=== PATIENT | female | born 1970 | race Caucasian/White ===

== ENCOUNTER 2020-09-08 20:10 | Emergency (ER) | payer OTHER, SELFPAY ==
--- NOTE | 2020-09-08 20:13 | ED.GENADUL_ITS ---
Discharge Plan Disposition Patient Disposition: HOME Condition: Stable Discharge Details Clinical Impression: Hypokalemia, Hernia, Constipation, Enlarged ovary, Acid reflux Primary Care Provider: None,None ED Provider: Leatha Godwin Home Meds and New Rx's Prescriptions: New pantoprazole [Protonix] 40 mg tablet,delayed release (DR/EC) 40 mg PO DAILY Qty: 20 RF: 0 Continued mupirocin 2 % ointment 1 applic TOPICAL BID RF: 0 doxycycline hyclate 100 mg tablet 1 mg PO BID RF: 0 Discharge Instructions Instructions: Magnesium Citrate (By mouth), Constipation (ED), Hypokalemia (ED), Gastroesophageal Reflux Disease (ED) Additional Instructions: In regard to your hernia, please keep your upcoming appointment with general surgery. This does not appear incarcerated today. However, if you develop fever/chills, increased pain, redness, firmness or other new/worsening symptom please seek care urgently once again. You were notably constipated on your CT scan today. Please encourage water intake. You are being sent home with magnesium citrate. Please take half a bottle for bowel movement. If this is unsuccessful, you may use the second half of the bottle. Your potassium was low today, you were given a supplementation for this. However, I would like you to decrease the amount of potassium containing foods you are in taking. Please take the Protonix as prescribed for your acid reflux. Please try to cut down on acid-containing foods. You had a large ovary noted on your imaging. I do not believe that this is contributing to your discomfort today. However, I would like for you to discuss this further with your primary care. If you develop any new or worsening symptoms please seek care urgently once again. Otherwise, please keep your appointment with general surgery as well as her primary care. Attached is educational reading regarding the findings noted today as well as information on the magnesium citrate you are going home with. Stand Alone Forms: Work Release Discharge Data Discharge Date/Time-TO BE ENTERED AT DEPARTURE: 09/08/20 22:50 Medical Decision Making Patient is a pleasant 50 year old female presneting today with c/c of hernia and heartburn. She states that the heartburn has been ongoing for years but worse over the past 2 months. Has not noted any foods that make symptoms worse. She states that she experiences a burning sensation that radiates jose r her chest, particularly when she burps. She denies exertioal CP or SOB. No fevers/chills. Has not been taking antying for her symptoms as she does not like to use medications and does not like the taste. She also recently notcied a lump to the right groin area. Has appointment on Tuesday with general surgery for evaluation of hernia. States that she has had some discomfort over this area. Reports constipation, last BM was this afternoon but less than her typical. Was advised to seek emergency evaluation with cahgne in bowel habits as she has a hernia. On exam, she appears nontoxic. Lungs clear, normal cardiac exam. Abdominal exam signficant for mild epigastric tenderness. She has a soft right inguinal hernia. I do not appreciate evidence of incarceration. She appears well hydrated. VS WNL. As she has had pain and hernia, plan for CT. ECG reviewed by physician, no acute ischemic changes noted. Labs reviewed, no leukocytosis. Potassium is low at 3.2, plan for oral replenishment. CT reviewed by radiologist. Significant for fat containing right inguinal hernia, no strangulation. Constipation. Enlarged right ovary. He pain is so focal with palpation of the hernia and quite mild, I do not suspect ovarian source of pain at htis time. Will have PCP discuss this further. She is feeling much improved after IV protonix. Will continue her on this. She has upcoming appointments iwth both PCP as well as general surgery. She is quite concerned with constipation. Encouraged water intake. ADvised OTC medication for improved bowel regimen. As stores are closed, will send her home iwth magnesium citrate. Advised half bottle this evening. She can take more if no result. Return precautions given. All of her questions and concerns were addressed, she is in agrement with this plan. HPI General Mode of arrival: ambulatory . Date/Time Provider Initiated Documentation: 09/08/20 20:13 . Limitations to Documentation: no limitations . Information obtained by: patient and RN notes reviewed . History of Present Illness 50 year old F presents to the emergency department with the chief complaint of heart burn and right lower hernia, described as moderate, Quality is described as aching, and is localized to the abdomen (reports fairly diffuse pain). Patient reports no radiation. Patient started experiencing this month(s) (intermittent for the past 2 months) and it has been intermittent. No relieving factors improve symptom(s), No exacerbating factors reported . Patient notes chest pain (endorses pain when she burps), loss of appetite (today) and nausea/vomiting (nausea, no vomiting); denies cough, diaphoresis, fever/chills and shortness of breath. Patient did receive the following treatments prior to arrival, none Related Data Home Medications Medication Instructions Recorded Confirmed doxycycline hyclate 1 mg PO BID 09/08/20 09/08/20 mupirocin 1 applic TOPICAL BID 09/08/20 09/08/20 pantoprazole [Protonix] 40 mg PO DAILY #20 tab 09/08/20 Previous Rx's Medication Instructions Recorded pantoprazole [Protonix] 40 mg PO DAILY #20 tab 09/08/20 Allergies Allergy/AdvReac Type Severity Reaction Status Date / Time No Known Allergies Allergy Unverified 09/08/20 20:19 Review of Systems Constitutional Constitutional: Reports as per HPI, Denies chills, Denies fatigue, Denies fever(s) and Denies headache(s) ENT Ears, Nose, Mouth, and Throat: Denies headache(s) Cardiovascular Cardiovascular: Reports as per HPI, Denies chest pain and Denies dyspnea Respiratory Respiratory: Reports as per HPI, Denies cough and Denies dyspnea Gastrointestinal Gastrointestinal: Reports as per HPI Musculoskeletal Musculoskeletal: Reports as per HPI and Denies back pain Integumentary/Breasts Skin/Breast: Reports as per HPI and Denies rash Neurologic Neurologic: Reports as per HPI and Denies headache(s) Endocrine Endocrine: Denies fatigue [facility] Surgical History (Updated 09/08/20 @ 20:46 by Alessandra Belle) Tubal ligation status Social History Smoking/Tobacco Use Status: Current every day Alcohol Intake: never Substance use type: does not use Do you feel safe at home: Yes Do you feel safe in your relationship?: Yes Exam Const General: cooperative, healthy appearing, comfortable, no acute distress and well developed Nutritional Appearance: average body habitus and well nourished Orientation: alert and awake [facility] Head: normal to inspection Mouth: moist mucous membranes Resp Effort & Inspection: normal respiratory effort, able to speak in complete sentences and no respiratory distress Auscultation: clear to auscultation bilaterally, no rales, no rhonchi and no wheezes Cardio Rate: regular rate Rhythm: regular rhythm Heart Sounds: S1 normal and S2 normal GI Inspection: no abdominal wall ecchymosis, no edema, non-distended and visible herniation (right inguinal) Palpation: soft, no hepatosplenomegaly, not firm, no guarding, hernia (right inguial, soft without evicence of incarceration), not rigid and tender (over hernia and epigastric area, no peritoneal findings) Percussion: normal to percussion Auscultation: normal bowel sounds Back/Spine/Pelvis Back: no CVA tenderness Skin General skin exam: no rashes or lesions noted Trauma: no lacerations or abrasions Neuro General: patient alert and patient awake Cognition: normal cognition Speech: speech normal Gait: normal gait Psych Appearance: grossly normal and well kempt Mental Status: mental status grossly normal Speech and Movement: speech and movement normal
--- NOTE | 2020-09-08 20:15 | DI.CT_ITS ---
EXAM: CT ABDOMEN PELVIS W CLINICAL HISTORY: epigastric and RLQ pain TECHNIQUE: Imaging Protocol: Axial computed tomography images with coronal and sagittal reformatted images were created and reviewed CONTRAST MATERIAL: Intravenous: Omnipaque 350 Contrast volume:100 mL Oral: No COMPARISON: No exams were available for comparison FINDINGS: ABDOMEN: Lung Bases: Normal where visualized. Liver: Normal density. No measurable mass. Portal, Superior Mesenteric, and Splenic Veins: Unremarkable. Gallbladder and Biliary Tract: No radiodense calculus or dilation. Pancreas: Normal density, no abnormal calcifications or inflammatory process. Spleen: Normal. Adrenals: No masses seen. Kidneys: Normal size, contour and axis. No radiodense stones or obstructive uropathy. No masses seen. Abdominal Aorta: Abdominal portion non-dilated. Bowel: No obstruction or bowel wall thickening. Appendix is unremarkable. There is a large amount of stool throughout the colon. Peritoneal Cavity: No ascites, collection or mesenteric inflammatory response. Lymph Nodes: Within normal limits. Bones: Mild degenerative changes. Soft Tissues: Small fat containing umbilical hernia. Small fat containing right inguinal hernia. PELVIS: Bladder: Symmetric distention, no gross wall thickening. Reproductive Organs: The right ovary measures 3.5 x 4.0 cm reproductive organs are otherwise unremark able. Lymph Nodes: Within normal limits. Bones: Within normal limits. IMPRESSION: 1. Normal appendix. 2. No evidence of nephrolithiasis or hydronephrosis. 3. Unremarkable gallbladder no biliary ductal dilatation. 4. Fat containing right inguinal hernia. 5. Mildly prominent right ovary. If there is concern for ovarian pathology, pelvic ultrasound may be considered for further evaluation. 6. Large amount of stool throughout the colon. No evidence of obstruction. RADIATION DOSE DELIVERED: 857.44mGy.cm Total DLP DATA REPOSITORY: All CT scans at this facility are submitted to the National Radiology Data Registry (NRDR) Dose Index Registry (DIR) with the [employer] (ACR). RADIATION OPTIMIZATION: All CT scans at this facility use at least one of these dose optimization te chniques: automated exposure control; mA and/or kV adjustment per patient size (includes targeted exa ms where dose is matched to clinical indication); or iterative reconstruction.
--- NOTE | 2020-09-08 20:15 | RT.EKG_ITS ---
APPROVED REPORT Exam: Resting ECG Patient Location: E HR:65 bpm ECG Measurements Heart Rate 65 AXIS IL 161 P 60 QRSd 94 QRS 72 QT 386 T 19 QTc 402 Conclusion Sinus rhythm...normal P axis, V-rate 60- 99
[2020-09-08 20:16] VITALS: BP 131/78; PULSE 90; RESP 16; TEMP 35.9; O2SAT 99
[2020-09-08] MEDS: Ondansetron 4 MG/2 ML VIAL IVP (20:40)
[2020-09-08] MEDS: Pantoprazole 40 MG VIAL IVP (20:41)
[2020-09-08] MEDS: Lactated Ringers 1,000 ML 1000 ML IV (20:55)
[2020-09-08 20:59] LABS: Abs Immature Grans 0.01 10^3/uL (0.0-0.06); Absolute Basophil Count 0.05 10^3/uL (0.0-0.2); Absolute Eosinophil Count 0.17 10^3/uL (0.0-0.7); Absolute Lymphocyte Count 2.46 10^3/uL (1.2-3.4); Absolute Neutrophil Count 3.61 10^3/uL (1.2-6.7); Basophils % 0.7; Eosinophils % 2.4; HCT 39.2 % (36.0-46.0); HGB 13.5 g/dL (11.2-15.7); Immature Grans % 0.1; Lymphocytes % 35.1; MCH 30.7 pg (27.0-33.0); MCHC 34.4 % (32.0-36.0); MCV 89.1 fL (80-95); MPV 10.4 fL (8.0-11.0); Neutrophils % 51.7; Nucleated RBC 0 %; Platelet Count 238 10^3/uL (130-400); RDW 12.3 % (11.7-14.6); RDW-SD 40.5 fL
[2020-09-08 21:00] LABS: Bilirubin Negative (Negative); Blood Negative (Negative); Clarity Clear (Clear); Glucose Negative (Negative); Ketones Negative (Negative); Leukocyte Esterase Negative (Negative); Nitrite Negative (Negative); Urobilinogen 0.2 EU/dL (Up TO 0.2)
[2020-09-08 21:15] LABS: ALT 19 U/L (14-59); AST 17 U/L (15-37); Albumin 3.8 g/dL (3.4-5.0); Alkaline Phosphatase 60 U/L (46-116); Anion Gap 6.9 mmol/L (3-11); BUN 20 mg/dL (7-18); Bilirubin, Total 0.4 mg/dL (0.2-1.0); CO2 30.1 mmol/L (21.0-32.0); CREATININE 0.82 mg/dL (0.55-1.02); Calcium 9.5 mg/dL (8.5-10.1); Chloride 104 mmol/L (98-107); Glucose 89 mg/dL (74-106); Lipase 99 U/L (73-393); Magnesium 2.1 mg/dL (1.8-2.4); Potassium 3.2 mmol/L (3.5-5.1); Sodium 141 mmol/L (136-145); Total Protein 6.7 g/dL (6.4-8.2)
[2020-09-08 21:16] LABS: Troponin I < 0.05 ng/mL (<0.06)
[2020-09-08] MEDS: Normal Saline - Diluent 50 ML VIAL IV (21:33)
[2020-09-08] MEDS: Omnipaque 350 MG/ML 100 ML BTL IJ (21:33)
[2020-09-08 21:39] VITALS: BP 113/67; PULSE 66; RESP 16; O2SAT 100
[2020-09-08] MEDS: Potassium Chloride 20 MEQ TABCR PO (22:43)
[2020-09-08] MEDS: Magnesium Citrate 300 ML BTL PO (22:44)
[2020-09-08 22:45] VITALS: BP 130/65; PULSE 63; RESP 16; TEMP 36.5; O2SAT 100
--- NOTE | 2020-09-11 16:03 | DI.VRAD_ITS ---
PROCEDURE INFORMATION: Exam: CT Abdomen And Pelvis With Contrast Exam date and time: 09/08/2020 8:25 PM Age: 50 years old Clinical indication: Localized; Prior surgery; Surgery date: 6+ months; Surgery type: Tubal ligation; Patient HX: Lower abdominal pain, PT states she has a hernia and has been painful in lower abdomen , nausea, and heartburn TECHNIQUE: Imaging protocol: Computed tomography of the abdomen and pelvis with intravenous contrast. Radiation optimization: All CT scans at this facility use at least one of these dose optimization techniques: automated exposure control; mA and/or kV adjustment per patient size (includes targeted exams where dose is matched to clinical indication); or iterative reconstruction. Contrast material: OMNIPAQUE 350; Contrast volume: 100 ml; Contrast route: INTRAVENOUS (IV); COMPARISON: No relevant prior studies available. FINDINGS: Lungs: Lung bases are clear and heart size is normal. No pleural or pericardial effusions are detected. Liver: No focal hepatic lesions detected. Gallbladder and bile ducts: Gallbladder is nondistended but otherwise unremarkable. Pancreas: No pancreatic mass or ductal dilation. Spleen: No splenomegaly or splenic mass. Adrenals: No adrenal mass. Kidneys and ureters: Bilateral excretion of contrast material with no hydronephrosis seen. Stomach and bowel: Moderate fecal loading seen throughout segments of colon with no evidence of obstruction or perforation. Appendix: Normal appendix is identified without evidence of inflammation. Intraperitoneal space: No pneumoperitoneum or free intraperitoneal fluid detected. Vasculature: No abdominal aortic aneurysm Lymph nodes: No lymphadenopathy detected. Urinary bladder: Unremarkable as visualized. Reproductive: Unremarkable as visualized. Bones/joints: No acute fracture. Soft tissues: Small right inguinal hernia identified containing a small amount of peritoneal fat with no bowel loop herniation or evidence of incarceration. IMPRESSION: 1. Small right inguinal hernia containing primarily small amount of peritoneal fat with no bowel loop herniation or evidence of incarceration. 2. Moderate fecal loading of the colon with no evidence of obstruction or perforation. Dictated and Authenticated by: Manohar Helm MD. Ordering:BUTCH Zhang MD
== END 2020-09-08 22:50 | disposition home or self-care (01) ==
PROVIDERS: Emergency Provider Physician Assistant
DX: E87.6 Hypokalemia (principal); K21.9 Gastro-esophageal reflux disease without esophagitis; K40.90 Unilateral inguinal hernia, without obstruction or gangrene, not specified as recurrent; K59.00 Constipation, unspecified; R93.5 Abnormal findings on diagnostic imaging of other abdominal regions, including retroperitoneum
CPT/HCPCS: 36415; 80053; 83690; 93005; 96361; 96374; 96375; 99285; 74177; 81003; 83735; 84484; 85025; 93010; 99284; J2405; J3490

== ENCOUNTER 2020-09-18 02:14 | Outpatient (CLI) | payer OTHER, SELFPAY ==
--- NOTE | 2020-09-18 08:00 | DI.US_ITS ---
EXAM: US PELVIS TRANSVAGINAL CLINICAL HISTORY: enlarged right ovary on CT,HERNIA,N83.9 TECHNIQUE: Transabdominal and transvaginal imaging was performed using standard protocol. COMPARISON: CT CT ABDOMEN PELVIS W from 09/08/2020 CR XR CHEST 2V PA LATERAL from 09/18/2020 FINDINGS: KIDNEYS: Kidneys are symmetric in size. No evidence of renal calculi. No evidence of hydronephrosis. No renal mass or cyst identified. UTERUS: Anteverted. 5.7 x 2.6 x 4.1 cm. Endometrium: 1 millimeter Myometrium: Unremarkable. Cervix: Unremarkable. OVARIES: Right: Cyst or mass: Right ovary is enlarged compared to the left, measuring 4.7 x 3.1 x 2.9 cm. The borders are not well-defined. This could be secondary to surrounding bowel. No discrete mass or cy st is visible. Left: Cyst or mass: None. 2.1 x 1.4 x 1.2 cm DOPPLER: Color: Symmetric and uniform flow to both ovaries. No hyperemia. Duplex: Normal ovarian arterial waveforms visualized. CUL-DE-SAC: Free fluid: None. IMPRESSION: 1. Normal-appearing uterus with endometrial stripe within normal limits. 2. Right ovarian enlargement. No discrete mass is seen however the borders appear indistinct. Follo w-up ultrasound or MRI could be considered. DATA REPOSITORY:
--- NOTE | 2020-09-18 14:40 | DI.RAD_ITS ---
EXAM: XR CHEST 2V PA LATERAL CLINICAL HISTORY: COUGH, SMOKER TECHNIQUE: 2D digital imaging was performed. COMPARISON: No exams were available for comparison FINDINGS: MEDIASTINUM: Normal. HEART: Normal. PULMONARY VASCULATURE: Normal. LUNGS: Clear. Mild hyperinflation. No infiltrate or mass is visible. PLEURAL SPACE: No pleural effusion or pneumothorax. BONE:Degenerative disc changes and thoracic kyphosis. No compression fractures. IMPRESSION: No acute pulmonary findings. DATA REPOSITORY: RADIATION DOSE DELIVERED:
== END 2020-09-18 02:34 ==
PROVIDERS: Visit Provider Surgery
DX: R05 Cough (principal); F17.210 Nicotine dependence, cigarettes, uncomplicated; N83.8 Other noninflammatory disorders of ovary, fallopian tube and broad ligament; K46.9 Unspecified abdominal hernia without obstruction or gangrene
CPT/HCPCS: 71046; 76830; 76856

== ENCOUNTER 2020-09-19 16:19 | Outpatient (REF) | payer OTHER, SELFPAY ==
--- NOTE | 2020-09-19 15:15 | PAPFT_PTH ---
PATIENT: Maribeth John I LOC: [facility] U#:[id number] AGE/SX: 50/F ROOM: RE09/19/[address]: DESI Buenrostro : 1970 BED: DIS: 09/19/2020 SPEC #: [id number] RECD: 09/19/20 17:55 STATUS: SUMAN REQ #: [id number] EDDIE: 09/19/20 15:[address]: Tamika Pantoja DEPT: [facility] Cytology RECD BY: Marva Newsome ENTERED: 09/19/20 17:55 SP TYPE: PAPFT OT DR: None Tissues: 1 - CX/ENDOCX FOR PAP SMEARS Procedures: PAP THIN PREP/UVM Screening HPV DNA PROBE Comments: [id number]
== END 2020-09-19 16:39 ==
LOC: LBN 16:19
PROVIDERS: Visit Provider Nurse Practitioner Family
DX: Z12.4 Encounter for screening for malignant neoplasm of cervix (principal); Z11.51 Encounter for screening for human papillomavirus (HPV)
CPT/HCPCS: 88142; 87624

== ENCOUNTER 2020-10-09 08:54 | Outpatient (CLI) | payer OTHER, SELFPAY ==
[2020-10-11 10:16] LABS: SARS-CoV-2 RNA Not Detected (NotDetected); SARS-CoV-2 RNA Source Nasal/Nares
== END 2020-10-09 09:14 ==
PROVIDERS: Visit Provider Surgery
DX: Z11.59 Encounter for screening for other viral diseases (principal); Z01.818 Encounter for other preprocedural examination
CPT/HCPCS: U0003

== ENCOUNTER 2020-10-13 11:28 | Day surgery (SDC) | payer OTHER, SELFPAY ==
[2020-10-13 12:10] VITALS: BP 113/77; PULSE 77; RESP 16; TEMP 36.4; O2SAT 100
[2020-10-13] MEDS: Lactated Ringers 1,000 ML 80 ML IV (12:30)
--- NOTE | 2020-10-13 15:00 | STOM_PTH ---
PATIENT: Maribeth John I LOC: [facility] U#:[id number] AGE/SX: 50/F ROOM: RE10/13/[address]: Annabelle Zaidi : 1970 BED: DIS: 10/13/2020 SPEC #: [id number] RECD: 10/13/20 17:56 STATUS: SUMAN REQ #: [id number] EDDIE: 10/13/20 15:[address]: Annabelle Zaidi DEPT: Surgical Specimen RECD BY: Marva Newsome ENTERED: 10/13/20 17:58 SP TYPE: STOMACH OTHR DR: None Tissues: 1 - BIOPSY BOWEL 2 - STOMACH BIOPSY 3 - STOMACH BIOPSY 4 - ESOPHAGUS BIOPSY 5 - ESOPHAGUS BIOPSY 6 - BIOPSY BOWEL Procedures: GROSS AND MICRO LEVEL 4 Comments: [id number] ([id number] [facility]#)
--- NOTE | 2020-10-13 15:32 | ENDO_ITS ---
Date of service: 10/13/20 Time of Service: 15:33 Endoscopy Report DATE OF PROCEDURE: 10/13/20 PRE-OP DIAGNOSIS: non cardiac chest pain POST-OP DIAGNOSIS: other (esophagitis/gastritis/hiatal hernia ) PROCEDURE: egd bx ANESTHESIA: GETA ESTIMATED BLOOD LOSS: 1 PATHOLOGY: other COMPLICATIONS: None DISPOSITION: same day PROCEDURE DESCRIPTION: After informed consent was obtained the patient was take to the procedure room and placed in a supine position. Monitors were applied and a time out was done. The patients name, date of , procedure type, allergies to medications and metal in their body was reviewed. A bite block was placed and the patient was sedated. Once sedated and comfortable the gastroscope was advanced through the oropharynx which was grossly normal into the esophagus. The proximal and mid-esophagus were nl. In the distal esophagus there was mild esophagitis noted. The scope was advanced into the stomach and through the pylorus into the 3rd portion of the duodenum. The duodenum was noted to be nl. Biopsies were done . The scope was retracted back into the stomach and biopsies were done to rule out H. pylori. There were no ulcers. Mild gastritis at the antrum. The scope was retroflexed. The cardia and fu ndus were noted to be normal. There small hiatal hernia noted. The scope was retracted back into the esophagus and biopsies were done of the GE junction to rule out Ramos's. The Z line was regular. The GE junction was at 37 cm. The scope was removed and the patient was woken up and taken back to [facility] in stable condition. Will have my office call to schedule her hernia surgery.
--- NOTE | 2020-10-13 15:37 | W.COLOREPORT ---
Date of service: 10/13/20 Time of Service: 15:37 Colonoscopy Report Date of procedure: 10/13/20 Pre-op diagnosis general: CRC screen Post-op diagnosis procedure note: other (s polyp vs lymphoid tissue ) Procedure: CE w/ bx Surgeon: Annabelle Zaidi Anesthesia proc note operative: GETA Estimated blood loss (mL): 0 Pathology: other Complications: None Disposition: no change Prep: Miralax/Dulcolax Retraction Time: 10 mins Procedure Description: After informed consent was obtained the patient was taken to the procedure room and placed in a left decubitous position. Monitors were applied and a time out was done. The patients name, date of , procedure, allergies to medications and metal in their body was reviewed. The patient was then sedated. Once sedated and comfortable a rectal exam was done. External exam was normal. Internal exam revealed a normal sphincter tone and no palpable masses. The scope was then introduced and retrofelexed. No internal hemorrhoids were identified. The scope was then advanced to the cecum w/ difficulty. The TI and appendiceal orifice were identified. The prep was adequate. The scope was then slowly retracted over 10 minutes back into the rectum. Polyps were removed at 30cm- polyp vs lymphoid tissue. The scope was removed and the patient was woken up and taken back to Same day surgery in stable condition. The patient tolerated the procedure well and there were no immediate complications. Follow up: The patient should follow up in 5-10 years, path pd, unless they develop changes in bowel habits or other new gastrointestinal complaints.
--- NOTE | 2020-10-13 15:39 | W.PM.DSUDISC ---
Discharge Plan Disposition Patient Disposition: HOME Condition: Good Discharge Details Reason For Visit: egd and CE Attending Provider: Annabelle Zaidi Primary Care Provider: None,None Home Meds and New Rx's Prescriptions: Discontinued polyethylene glycol 3350 17 gram/dose powder 238 g PO ONCE Qty: 238 RF: 0 bisacodyl [Dulcolax (bisacodyl)] 5 mg tablet,delayed release (DR/EC) 5 mg PO ONCE Qty: 4 RF: 0 lorazepam [Ativan] 1 mg tablet 1 mg PO ONCE PRN (Reason: anxiety) Qty: 1 RF: 0 No Action pantoprazole [Protonix] 40 mg tablet,delayed release (DR/EC) 40 mg PO DAILY Qty: 90 RF: 4 pantoprazole [Protonix] 40 mg tablet,delayed release (DR/EC) 40 mg PO DAILY Qty: 20 RF: 0 Discharge Instructions Instructions: Hiatal Hernia (GEN), Gastroesophageal Reflux in Infants (GEN) Additional Instructions: Findings:gastritis/hiatal hernia/esophagitis. small colon polyp Follow up: [facility] in 1-2 wks Please call if you develop: fevers >101.5 Nausea or Vomiting Abdominal pain that is not transient DAY SURGERY UNIT POST COLONOSCOPY INSTRUCTIONS 1. Because there will be medication in your system for the next 24 hours, you may feel a little sleepy. Your coordination will be affected. Therefore: a. Do not drive or operate dangerous equipment for 24 hours. b. Do not drink alcohol beverages for 24 hours (not even beer). c. Plan to go home and rest for the day. 2. Generally there are no restrictions on your activity after a day or so has gone by, but you may feel a bit fatigued for a few days. 3 After you arrive home you may have a light meal and return to a normal diet as you can tolerate it without feeling sick to your stomach. 4. After surgery, you may feel pain or discomfort. This should be only transient, but if it persists please contact your doctor. 5. If there are any questions regarding the findings of your procedure, please feel free to contact your doctor. 6. If you are unable to contact your doctor with a problem, contact the hospital at [phone]. 7. Continue all your regular medications unless directed otherwise. I understand the above instructions and have no questions. Signature of Patient or Responsible Adult Escort Date/Time Name of Responsible Adult Escort Signature of Nurse Date/Time Activity:: no lifting over 20#'s or strenuous activity x 24 hrs Diet:: small light meals x 24 hrs Discharge Orders Discharge Orders: Discharge Order (Routine); Ordered 10/13/20 Ordered By: Annabelle Zaidi DS: Diagnosis Discharge Diagnosis (1) Colon cancer screening: Status: Acute (2) Hiatal hernia with GERD: Status: Acute (3) Esophagitis determined by endoscopy: Status: Acute (4) Gastritis: Status: Acute
[2020-10-13 16:00] VITALS: BP 106/68; PULSE 64; RESP 16; TEMP 36.1; O2SAT 98
== END 2020-10-13 16:23 | disposition home or self-care (01) ==
PROVIDERS: Visit Provider Surgery
PROC: (CPT 45380; principal; 2020-10-13 13:45)
DX: Z12.11 Encounter for screening for malignant neoplasm of colon (principal); R07.89 Other chest pain; K31.89 Other diseases of stomach and duodenum; K63.5 Polyp of colon; K21.00 Gastro-esophageal reflux disease with esophagitis, without bleeding; K29.70 Gastritis, unspecified, without bleeding; K44.9 Diaphragmatic hernia without obstruction or gangrene; F17.210 Nicotine dependence, cigarettes, uncomplicated
CPT/HCPCS: 45380; 43239; 81025; 88305; J2001

== ENCOUNTER 2020-10-20 01:28 | Outpatient (CLI) | payer OTHER, SELFPAY ==
--- NOTE | 2020-10-20 08:15 | DI.US_ITS ---
EXAM: US PELVIS TRANSVAGINAL CLINICAL HISTORY: F/U on right ovarian enlargement,N83.8 TECHNIQUE: Transabdominal and transvaginal imaging was performed using standard protocol. COMPARISON: CT CT ABDOMEN PELVIS W from 09/08/[address] ABDOMEN PELVIS W from 09/08/2020 US US PELVIS TRANSVAGINAL from 09/18/2020 FINDINGS: KIDNEYS: Kidneys are symmetric in size. No evidence of renal calculi. No evidence of hydronephrosis. No renal mass or cyst identified. Bladder is unremarkable as visualized. UTERUS: Anteverted. 5.4 by 2.3 x 4.1 cm Endometrium: 2 millimeters Myometrium: Unremarkable. Cervix: Unremarkable. OVARIES: Right: Cyst or mass: The right ovary measures 2.6 by 2.8 by 3 cm.. No calcifications or fatty compon ents were seen on the previous CT. The overall size of the right ovary appears decreased when compar ed the previous exam. Left: Cyst or mass: Normal in size. Left ovary appeared normal on the previous ultrasound and CT. T here is now a question of a 1.6 centimeter shadowing mass versus shadowing by adjacent bowel. DOPPLER: Color: Symmetric and uniform flow to both ovaries. No hyperemia. Duplex: Normal ovarian arterial waveforms visualized. CUL-DE-SAC: Free fluid: None. IMPRESSION: 1. Normal-appearing uterus with endometrial stripe within normal limits. 2. Interval decrease in size of right ovary. There is a again question of a shadowing mass which cou ld be artifactual. An MRI could be considered for further evaluation. DATA REPOSITORY:
== END 2020-10-20 01:48 ==
PROVIDERS: Visit Provider Nurse Practitioner Family
DX: N83.8 Other noninflammatory disorders of ovary, fallopian tube and broad ligament (principal)
CPT/HCPCS: 76830; 76856

== ENCOUNTER 2020-10-24 02:31 | Outpatient (CLI) | payer OTHER, SELFPAY ==
--- NOTE | 2020-10-24 08:15 | DI.MAMMO_ITS ---
EXAM: MAMMO SCREENING CLINICAL HISTORY: screening, Z12.39 TECHNIQUE: Mammograms were interpreted according to the usual protocol including computer analysis w Perfect CAD system, tomosynthesis and C-view imaging. COMPARISON: FINDINGS: The breasts are heterogeneously dense. No dominant mass or clumped microcalcification is identified in either breast. The current examination is compared with previous examinations including August 29 and there is increased prominence of a focal area of asymmetric density projected in the upper ou ter quadrant of the left breast on CC and MLO views. No definite mass is identified but additional s pot compression views of the left breast are requested as well as a left breast ultrasound. No other significant change in appearance comparison with prior studies. IMPRESSION: Additional mammographic views of the left breast requested as described above, left breast ultrasound also requested. BI-RADS Category 0 - Assessment Incomplete: Need additional imaging evaluation Breast Density - Category C - Heterogeneously dense
== END 2020-10-24 02:51 ==
PROVIDERS: Visit Provider Surgery
DX: Z12.31 Encounter for screening mammogram for malignant neoplasm of breast (principal); R92.8 Other abnormal and inconclusive findings on diagnostic imaging of breast
CPT/HCPCS: 77063; 77067

== ENCOUNTER 2020-10-30 03:20 | Outpatient (CLI) | payer OTHER, SELFPAY ==
[2020-10-31 10:45] LABS: CA 125 11 U/mL (<30)
== END 2020-10-30 03:40 ==
PROVIDERS: Visit Provider Nurse Practitioner Family
DX: N83.8 Other noninflammatory disorders of ovary, fallopian tube and broad ligament (principal)
CPT/HCPCS: 36415; 86304

== ENCOUNTER 2020-10-31 04:11 | Outpatient (CLI) | payer OTHER, SELFPAY ==
--- NOTE | 2020-10-31 | DI.MAMMO_ITS ---
EXAM: MG MAMMO SCREEN CALL BACK UNI CLINICAL HISTORY: F/U MAMMO, INCREASED ASYMMETRIC DENSITY UOQ LT BREAST. TECHNIQUE: Craniocaudal and mediolateral oblique Full Field Digital Mammography views of the left br east with Computer Aided Diagnosis followed by Tomosynthesis and left breast ultrasound. COMPARISON: MG MG MAMMOGRAPHY BILATERAL SCREENING from 02/16/2012 MG MG MAMMOGRAPHY BILATERAL SCREENING from 10/02/2015 MG MG MAMMOGRAPHY BILATERAL SCREENING from 09/19/2019 MG MG MAMMO SCREENING from 10/24/2020 US US BREAST LT LIMITED from 10/31/2020 FINDINGS: Mammography/Tomosynthesis: Masses/Architectural Distortion: Persistent circumscribed 5 millimeter nodule upper outer quadrant. Microcalcifictions: No suspicious pleomorphic-type are seen. Skin Thickening/Nipple Retraction: None. Breast US: Echotexture: Normal appearance of the glandular tissue. Shadowing: No suspicious foci. Cyst: None. Solid lesions: 5 by 3 x 4 millimeter ovoid smoothly marginated hypoechoic lesion with central fatty h ilum, consistent with an benign intramammary lymph node. No suspicious masses Ductal dilation: None. IMPRESSION: 1. No evidence of malignancy is noted. 2. Unless there is more urgent need, follow-up screening mammography is recommended, as per [place] [employer] guidelines. BI-RADS Category 2 - Benign Findings Breast Density - Category C - Heterogeneously dense Breast density category C or D implies that the patient has dense breast tissue. Dense breast tissue is very common and is not abnormal but dense breast tissue can make it harder to find cancer on a ma mmogram. Also, dense breast tissue may increase their breast cancer risk. This information about the result of the mammogram report was provided to the patient to raise their awareness. Use this report when you speak with the patient about their risks for breast cancer, which includes their family hist ory. At that time, you may recommend for more screening tests (Ultrasound or MRI) as they might be us eful based on their risk. A negative radiographic report should not delay biopsy if a dominant or clinically suspicious mass is present. Up to ten percent of cancers are not identified on mammography. A negative report may reinforce clinical impression. Adenosis and dense breasts may obscure an underlying neoplasm. False positive reports average 6 to 10%. Patient will receive a letter notifying them of these results.
== END 2020-10-31 04:31 ==
PROVIDERS: Visit Provider Surgery
DX: R92.8 Other abnormal and inconclusive findings on diagnostic imaging of breast (principal)
CPT/HCPCS: 76642; 77063; 77067

== ENCOUNTER 2020-11-06 04:43 | Outpatient (CLI) | payer OTHER, SELFPAY ==
[2020-11-08 10:03] LABS: COVID-19 RT-PCR Result NEGATIVE (Negative)
== END 2020-11-06 05:03 ==
PROVIDERS: Surgery; Visit Provider Surgery
DX: Z11.59 Encounter for screening for other viral diseases (principal); Z01.818 Encounter for other preprocedural examination
CPT/HCPCS: U0003

== ENCOUNTER 2020-11-10 06:19 | Day surgery (SDC) | payer OTHER, SELFPAY ==
[2020-11-10] VITALS (11 sets, daily range): BP systolic 94–116; BP diastolic 44–77; PULSE 53–71; RESP 12–18; TEMP 35.9–37.1; O2SAT 98–100
[2020-11-10] MEDS: Acetaminophen 500 MG TAB 1000 MG PO (07:11)
[2020-11-10] MEDS: Gabapentin 300 MG CAP PO (07:11)
[2020-11-10] MEDS: Lactated Ringers 1,000 ML 80 ML IV (07:12)
[2020-11-10] MEDS: ceFAZolin 2 GM/50 ML BAG IVPB (07:40)
--- NOTE | 2020-11-10 09:18 | ROE_ITS ---
Date of service: 11/10/20 Time of Service: 09:18 Operative Note Operative Note DATE OF PROCEDURE: 11/10/20 PRE-OP DIAGNOSIS: R inguinal hernia/enlarged ovary/umbilical hernia POST-OP DIAGNOSIS: same PROCEDURE: diagnostic laparascopy umbilical herniav repair inguibal hernia w/ mesh SURGEON: Annabelle Zaidi ASSISTING SURGEON: Jillian Guerrero RETAIL ADVERTISING ACCOUNT EXECUTIVE: Magalis Mariscal ANESTHESIA: GETA ESTIMATED BLOOD LOSS: 5 PATHOLOGY: none sent COMPLICATIONS: None Patient was transported to: PACU Patient's condition: stable Implants: see RN notes Procedure Description: See Dr. Guerrero's notes for the specifics of her portion of the procedure.
[2020-11-10] MEDS: Bupivacaine LIPOSOME/PF 133 MG/10 ML VIAL IJ (09:23)
--- NOTE | 2020-11-10 09:38 | ROE_ITS ---
Date of service: 11/10/20 Time of Service: 09:38 Operative Note Operative Note DATE OF PROCEDURE: 11/10/20 PRE-OP DIAGNOSIS: Enlarged right ovary POST-OP DIAGNOSIS: same PROCEDURE: Diagnostic laparoscopy SURGEON: Jillian Guerrero ASSISTING SURGEON: Annabelle Zaidi CEMETERY MANAGER: Magalis Mariscal ANESTHESIA: GETA ESTIMATED BLOOD LOSS: 5 PATHOLOGY: none sent Patient was transported to: PACU Patient's condition: stable Implants: None Indications: CT and ultrasound findings with enlarged right ovary Findings: Normal-appearing ovaries bilaterally. Evidence of pelvic congestion with venous varicosity disease in the right adnexa contributing to imaging findings Procedure Description: After consultation with the patient in the office and review of imaging studies, there is noted to be a slight variance in right versus left ovarian size. There is evidence of right ovarian enlargement and questionable vascularity in that area. She had a normal CA-125. Risks, benefits, alternatives of surgical exploration were explained to the patient including risk of infection, bleeding, injury to surrounding organs, risk of anesthesia, risk of need for unilateral or bilateral oophorectomy, risk of open laparotomy. Full informed consent was obtained. She was taken the operating suite with an IV running where she placed in dorsal supine position and endotracheal intubation performed with administration of general anesthesia with ease. She was then placed in the modified dorsolithotomy position prepped and draped in usual sterile fashion. Irivn catheter had been inserted for continuous bladder drainage. Exam under anesthesia revealed a uterus that is midline and mobile without significant adnexal mass. Speculum was placed into the posterior vaginal vault and single-tooth tenaculum used to grasp the ante rior lip of the cervix. Uterus sounded to 6 cm and a ZUMI uterine manipulator placed within. Attention was then turned to the abdomen with Dr. Paz placed a 5 mm sleeve and trocar after insufflation with CO2 gas to a maximum pressure of 15 mmHg. The uterus was elevated the abdomen was found to be atraumatic. Uterus is freely midline and mobile without evidence of pathology. There was evidence of her previous tubal removal. Right and left ovaries appeared normal bilaterally. She does have some venous varicosities at the right adnexa which do not appear pathologic. After visualization of completely normal ovaries with no other pelvic pathology noted my portion of the procedure was terminated. Blood loss: Minimal Findings: Normal ovaries and uterus no evidence of ovarian pathology, adhesions, endometriosis.
[2020-11-10] MEDS: HYDROmorphone 2 MG/ML VIAL IVP ×2 (10:07→10:16)
[2020-11-10] MEDS: Normal Saline Flush 10 ML SYR IV (10:07)
[2020-11-10] MEDS: fentaNYL 100 MCG/2 ML VIAL IVP ×2 (10:22→10:30)
--- NOTE | 2020-11-10 10:23 | W.PM.DSUDISC ---
Discharge Plan Discharge Details Attending Provider: Annabelle Zaidi Primary Care Provider: None,None Home Meds and New Rx's Prescriptions: No Action pantoprazole [Protonix] 40 mg tablet,delayed release (DR/EC) 40 mg PO HS RF: 0 Discharge Instructions Additional Instructions: Dr. Zaidi HERNIA REPAIR ? POSTOPERATIVE INSTRUCTIONS Patients who have this type of surgery can usually be expected to return to work within two weeks and have minimal amounts of discomfort. ? ACTIVITY: The day of surgery should be spent resting. However, you can be up for short periods of time, I.E., going to the bathroom or kitchen. Avoid lifting or straining. On the day following surgery, you can be up and about as desired. ? LIFTING: Restrict your lifting to no more than five (5) pounds for the first week following surgery. For the second week after surgery, don?t lift more than ten pounds. We will decide when you are done with restrictions and when you can return to work, at your follow-up appointment. No sexual activity for two weeks. ? DIET: There are no dietary restrictions following surgery. However, you may want to start with small amounts of liquids to avoid nausea the day of surgery. ? INCISION CARE: You will notice purple skin glue closing the incision. Do not peel this off- it will wear off on its own. After 24 hours you may shower. The dressing may be replaced for comfort, but is not necessary. An ice bag may be applied to the incision for 72 hours following surgery. ? SIGNS OF INFECTION: It is not unusual to have some black and blue discoloration of the skin around the incision, but also scrotum and penis. It will slowly disappear. If you have any increased redness, drainage, fever (above 100 degrees), please contact your doctor for an examination. ? DISCOMFORT: You may expect to have some mild discomfort at the incision sight. If severe pain develops you should contact your doctor for further instructions. ? URINATION: Patients who have surgery occasionally have problems urinating. If you experience problems and are not able to urinate within 6 hours following your surgery, please call your doctor immediately or go to your nearest Emergency Room for evaluation. ? DRIVING: NO driving for five (5) days after surgery or if you are still taking narcotic pain medication. ? MEDICATIONS: Alternate Tylenol 1000mg by mouth every 8hours and Ibuprofen 600mg every 6hours. Take the Tylenol and ibuprofen continuously for the first 72hrs- not just when you have pain. Use the tramadol for breakthrough pain. Use ICE! Twenty minutes on, and then off, continuously for the first 72hours. If you are taking narcotic pain medication, follow the instructions on the label and do not drive. Pain medications can make you very constipated. Make sure you are moving your bowels daily. If not, take Miralax, milk of magnesia or magnesium citrate. Anesthesia makes you very constipated. Take a dose of milk of magnesia the morning after surgery. ? REPORT: Unusual swelling, severe pain, unresolved nausea, signs of infection, or difficulty in urination to your surgeon. Follow up in clinic with Dr. Zaidi in 1-2 weeks. [phone] Activity:: up waling today. no lifting over 5#'s x 2 wks Remove Dressings/Wound Care:: 24 hours Shower/Bathe:: 24 hours Activity:: small light meals x 24 hr DS: Diagnosis Discharge Diagnosis (1) Umbilical hernia: Status: Acute (2) Right inguinal hernia: Status: Acute (3) Gastritis: Status: Acute (4) Hiatal hernia with GERD: Status: Acute (5) Smoker: Status: Acute (6) Right ovarian enlargement: Status: Acute
--- NOTE | 2020-11-10 10:25 | W.PM.OP ---
Date of service: 11/10/20 Time of Service: 10:26 Operative Note Operative Note DATE OF PROCEDURE: 11/10/20 PRE-OP DIAGNOSIS: right inguinal hernia umbilical hernia enlarged right ovary POST-OP DIAGNOSIS: same PROCEDURE: Diagnostic laparoscopy Repair umbilical hernia- opne. no mesh open repair of inguinal hernia with mesh SURGEON: Annabelle Gill ASSISTING SURGEON: Jillian Guerrero EXPERIMENTAL PREFLIGHT MECHANIC: Magalis Mariscal ANESTHESIA: GETA ESTIMATED BLOOD LOSS: 5 PATHOLOGY: none sent Patient was transported to: PACU Patient's condition: stable Procedure Description: INDICATIONS: The pt is here today for surgery regarding symptomatic right inguinal hernia that has failed outpatient conservative medical management and he is here today for repair. Informed consent was obtained, explaining risks and benefits of the procedure including but not limited to bleeding, infection, pneumonia, blood clots, chronic pain, chronic numbness, recurrence of hernia, reaction to Mesh necessitating removal, and other unforetold complications, and complications of anesthesia-which were addressed by the TECHNOLOGY ARCHITECT. The patient is marked in preOp prior to the procedure DESCRIPTION OF PROCEDURE: The pt is then brought to the operative room suite. Anesthesia was administered per the Department of Anesthesia. The patient was prepped and draped in the usual sterile fashion using ChloraPrep scrub solution. Pause for the cause was done. He did receive preop IV antibiotics, and 30 mL of .25% Marcaine w/ epinephrine was used for local anesthetization. -Routine procedure patient underwent diagnostic laparoscopy for enlarged ovary. This portion of the procedure was done by Dr. Guerrero. Small incision was made in the umbilicus following creation of local field blocks using Marcaine. Hemostat was used to open the subcutaneous tissue and identified the hernia defect. The varies was inserted through the hernia defect. Insufflation was begun. When 15 mm of pressure noted on the monitor the varies is removed. #5 port is inserted. The camera is inserted through the port which shows no damage to underlying structures. Remainder the procedure was then carried out by Dr. Guerrero and please see her operative report for description of the ovaries and pelvic structures. SHe did receive preop IV antibiotics, and 30 mL of .25% Marcaine w/ epinephrine was used for local anesthetization. A #12 blade was used to make an incision over the external ring. Electrocautery used to provide hemostasis and dissect down to the fascia. The fascia isopened. She has a very enlarged/patulous ring. The nerve was is identified adn placed out of the operative field. Electro-cautery is used to provide hemostasis. There is a medium hernia pushing through the External ring. This appears to be just be omentum. This is excised. Remainder returned to the abdominal cavity. A medium plug is placed in the defect and over steps along with 2-0 Vicryl. . The patch was then placed on the floor and sewn in using 2-0 Vicryl sewn into the pubic tubercle and the shelving portions of the inguinal ligament. The wound was copiously irrigated. There was no bleeding noted. All structures are returned to there nomral anatomic position. The external oblique is than closing in a running fashion with 2-0 vicryl, taking care to not incorporate the nerve into the incision. Deep tissue was approximated with 3-0 Vicryl and skin was approximated with 4-0 Monocryl in a running subcuticular fashion. He also has a small umbilical hernia defect. During the diagnostic laparoscopy camera was inserted through hernia defect. After the diagnostic. Laparoscopic was completed, pneumoperitoneum was evacuated. The port was removed. Sponge and needle counts are correct. Her ovaries and pelvic structures appeared normal. The umbilical defect was closed with 3 stitches of 0 Vicryl. The skin was closed with 4-0 Monocryl in a running subcuticular fashion and skin glue was applied as well. At the completion of the procedure, the 2 incisions were infiltrated with 20 cc of Exparel. Sterile dressings are applied. The patient tolerated the procedure without complications to recovery in stable condition. ANNABELLE GILL, DO
--- NOTE | 2020-11-10 10:49 | W.PM.DSUDISC ---
Discharge Plan Discharge Details Attending Provider: Annabelle Zaidi Primary Care Provider: None,None Home Meds and New Rx's Prescriptions: New tramadol [Ultram] 50 mg tablet 50 mg PO Q4H PRNQty: 14 RF: 0 ibuprofen 600 mg tablet 600 mg PO Q6H PRNQty: 60 RF: 5 Continued pantoprazole [Protonix] 40 mg tablet,delayed release (DR/EC) 40 mg PO HS RF: 0 Discharge Instructions Additional Instructions: Dr. Zaidi HERNIA REPAIR ? POSTOPERATIVE INSTRUCTIONS Patients who have this type of surgery can usually be expected to return to work within two weeks and have minimal amounts of discomfort. ? ACTIVITY: The day of surgery should be spent resting. However, you can be up for short periods of time, I.E., going to the bathroom or kitchen. Avoid lifting or straining. On the day following surgery, you can be up and about as desired. ? LIFTING: Restrict your lifting to no more than five (5) pounds for the first week following surgery. For the second week after surgery, don?t lift more than ten pounds. We will decide when you are done with restrictions and when you can return to work, at your follow-up appointment. No sexual activity for two weeks. ? DIET: There are no dietary restrictions following surgery. However, you may want to start with small amounts of liquids to avoid nausea the day of surgery. ? INCISION CARE: You will notice purple skin glue closing the incision. Do not peel this off- it will wear off on its own. After 24 hours you may shower. The dressing may be replaced for comfort, but is not necessary. An ice bag may be applied to the incision for 72 hours following surgery. ? SIGNS OF INFECTION: It is not unusual to have some black and blue discoloration of the skin around the incision, but also scrotum and penis. It will slowly disappear. If you have any increased redness, drainage, fever (above 100 degrees), please contact your doctor for an examination. ? DISCOMFORT: You may expect to have some mild discomfort at the incision sight. If severe pain develops you should contact your doctor for further instructions. ? URINATION: Patients who have surgery occasionally have problems urinating. If you experience problems and are not able to urinate within 6 hours following your surgery, please call your doctor immediately or go to your nearest Emergency Room for evaluation. ? DRIVING: NO driving for five (5) days after surgery or if you are still taking narcotic pain medication. ? MEDICATIONS: Alternate Tylenol 1000mg by mouth every 8hours and Ibuprofen 600mg every 6hours. Take the Tylenol and ibuprofen continuously for the first 72hrs- not just when you have pain. Use the tramadol for breakthrough pain. Use ICE! Twenty minutes on, and then off, continuously for the first 72hours. If you are taking narcotic pain medication, follow the instructions on the label and do not drive. Pain medications can make you very constipated. Make sure you are moving your bowels daily. If not, take Miralax, milk of magnesia or magnesium citrate. Anesthesia makes you very constipated. Take a dose of milk of magnesia the morning after surgery. ? REPORT: Unusual swelling, severe pain, unresolved nausea, signs of infection, or difficulty in urination to your surgeon. Follow up in clinic with Dr. Zaidi in 1-2 weeks. [phone] Activity:: up waling today. no lifting over 5#'s x 2 wks Remove Dressings/Wound Care:: 24 hours Shower/Bathe:: 24 hours Activity:: small light meals x 24 hr DS: Diagnosis Discharge Diagnosis (1) Umbilical hernia: Status: Acute (2) Right inguinal hernia: Status: Acute (3) Gastritis: Status: Acute (4) Hiatal hernia with GERD: Status: Acute (5) Smoker: Status: Acute (6) Right ovarian enlargement: Status: Acute
[2020-11-10] MEDS: traMADol 50 MG TAB PO (11:37)
== END 2020-11-10 12:58 | disposition home or self-care (01) ==
LOC: SUR 06:19
PROVIDERS: Obstetrics & Gynecology; Referring Provider Surgery; Visit Provider Surgery
PROC: (CPT 49320; 2020-11-10 07:30)
DX: N83.8 Other noninflammatory disorders of ovary, fallopian tube and broad ligament (principal); K42.9 Umbilical hernia without obstruction or gangrene; K40.90 Unilateral inguinal hernia, without obstruction or gangrene, not specified as recurrent; I86.2 Pelvic varices; Z98.51 Tubal ligation status; N73.6 Female pelvic peritoneal adhesions (postinfective); N80.9 Endometriosis, unspecified
CPT/HCPCS: 49320; 49505; 49585; C1781; J0690; J1100; J2001; J2250; J2405; J2704; J3010

== ENCOUNTER 2021-08-17 05:54 | Emergency (ER) | payer OTHER, SELFPAY ==
[2021-08-17 05:57] VITALS: BP 128/73; PULSE 80; RESP 19; TEMP 36.3; O2SAT 98
--- NOTE | 2021-08-17 06:01 | ED.GENADUL_ITS ---
Discharge Plan Disposition Patient Disposition: HOME Condition: Good Discharge Details Clinical Impression: Right sided abdominal pain Primary Care Provider: None,None ED Provider: Oleg Finnegan Meds and New Rx's Prescriptions: Continued pantoprazole [Protonix] 40 mg tablet,delayed release (DR/EC) 40 mg PO HS RF: 0 ibuprofen 600 mg tablet 600 mg PO Q6H PRNQty: 60 RF: 5 Discharge Instructions Additional Instructions: Hernia repair is stable no increase fluid within the inguinal canal is likely the cause of swelling. No obvious cause for the pain. You will need follow-up with Dr. Zaidi and she called this morning for appointment. Return to ED if you develop fever, vomiting, localized/worsening pain, redness/firmness in the inguinal area. Referrals: Annabelle Zaidi DO [OSTEOPATHIC DOCTOR] - Medical Decision Making Patient with increasing now persistent right-sided abdominal pain that originally started where her previous right inguinal hernia repair has been done. She has no associated GI symptoms other than some constipation. She has no erythema or warmth in the area. There is some fullness in the inguinal area but no discrete mass, fluctuance. Possible this is associated with recurrent hernia. At the same time as the inguinal hernia was repaired she apparently also had a umbilical hernia repaired. She is feeling pain radiating up from the inguinal area into the right upper abdomen. Patient concerned because of the worsening pain and swelling. We will go ahead and obtain CT scan to evaluate for possible recurrent hernia. Do not feel that laboratory studies are necessary. She has no kidney problems, hypertension, diabetes and previous creatinine and GFR have been fine. Will give fluids and Toradol and obtain CT abdomen pelvis with IV contrast. Abdominal pelvic CT scan shows stable adipose tissue has been present status post hernia repair. There is increased fluid within the right inguinal canal. There is fair amount of ascending colon fecal loading with decompressed descending colon. Consider descending colitis but patient has no diarrhea or left-sided pain clinically likely. Appendix without signs of inflammation but some fluid and wall enhancement which radiology feels is normal.. She does not have tenderness over McBurney's point. Will refer back to surgery and have patient call today for follow-up. Activity as tolerated, avoid heavy lifting, use Tylenol or Motrin for pain. Return to ED for fever, vomiting, localized/worsening pain. HPI General Mode of arrival: ambulatory . Date/Time Provider Initiated Documentation: 08/17/21 05:56 . Limitations to Documentation: no limitations . Information obtained by: patient and RN notes reviewed . HPI Narrative: Patient presents to the ED with right-sided abdominal pain. Patient reports pain previous right inguinal hernia repair site. Started about 3 weeks ago and was mild and intermittent. Now has persistent, worsening pain radiating from the inguinal repair site up into the right abdomen. She has swelling in the area of the hernia repair. She denies fever, vomiting. She has some constipation which responds to stool softener. She has no change in appetite. She has no difficulty urinating. She had difficulty sleeping last night because of pain. She has been taking ibuprofen with some relief. She has not called surgical office to be seen there. Related Data Home Medications Medication Instructions Recorded Confirmed pantoprazole [Protonix] 40 mg PO HS 11/07/20 08/17/21 ibuprofen 600 mg PO Q6H PRN #60 tab 11/10/20 08/17/21 Previous Rx's Medication Instructions Recorded ibuprofen 600 mg PO Q6H PRN #60 tab 11/10/20 Allergies Allergy/AdvReac Type Severity Reaction Status Date / Time No Known Allergies Allergy Unverified 08/17/21 06:05 General ANGELA: 3 Review of Systems Narrative: As documented in HPI otherwise negative as below. Const: no fever, chills, weakness Resp: no cough, SOB, pleuritic pain CV: no CP, diaphoresis, edema, syncope GI: no nausea, vomiting, diarrhea Neuro: no headache, numbness, focal weakness, confusion PFSH Medical History Colon cancer screening Esophagitis determined by endoscopy Family history of breast cancer Gastritis Hiatal hernia with GERD Right inguinal hernia Right ovarian enlargement Dg laparoscopy done 11/16. ovaries directly visualized nad no malignancy Smoker Umbilical hernia Surgical History H/O right inguinal hernia repair (~11/10/20) History of esophagogastroduodenoscopy (~10/13/20) Hx of colonoscopy (~10/13/20) Tubal ligation status Family History Father Throat cancer Stroke Mother Breast cancer Estrogen and Progesterone receptor + Maternal Aunt Breast cancer Sister Lung cancer Social History Smoking/Tobacco Use Status: Current every day Smoking risk assessment performed?: Yes Alcohol Intake: never Substance use type: does not use Current gender identity: female Do you feel safe at home: Yes Do you feel safe in your relationship?: Yes Exam Narrative Exam Narrative: Const: WDWN female in NAD. HEENT: NC/AT. Normal facial exam. Eyes: Normal conjunctiva and sclera. Neck: Supple. Trachea midline. Lungs: Normal respiratory effort. GI: Soft and ND. Some fullness in the right inguinal area with mild tenderness. Not firm or hard to palpation. Mild tenderness in right abdominal area that is not present with distraction. No guarding or rebound. Neuro: A+O x 3. Normal speech, mentation, gait. Cranial nerves II - XII grossly intact. No gross motor or sensory deficit. Ext: No C/C/E. Skin: Warm and dry without rash.
--- OUTSIDE RECORDS SUMMARY | 2021-08-17 06:01 | XMS_ITS ---
:1970 Author Organization [facility] Address [address] [place] [address] Care Team Providers Name Role Phone Ruelle Unavailable Unavailable PROBLEMS Type Condition ICD9-CM [id number] Onset Condition SNOMED Cod e Code Code Dates Status Problem Bunion of right M20.11 Active 6535 8001 foot Problem Postmenopausal N95.2 Active 11448 000 atrophic vaginitis Problem Hammer toe of M20.41 Active 836919 [id number] right foot Problem Grief F43.21 Active [id number] ALLERGIES No Known Allergies ENCOUNTERS Encounter Location Date Diagnosis [facility] Sep, [place] [address] [facility] Sep, [place] [address] [address] Sep, Hammer toe of right foot M20.41 [address], ; Bunion of right foot M20.11 ; [place] [address] Predislocation s yndrome of metatarsophalang eal joint of right foot M25.8 71 and Abscess of heel, left L0 2.[address] [facility] Aug, [place] [address] [address] Aug, Hammer toe of right foot M20.41 [facility] [place], ; Bunion of right foot M20.11 ; [place] [address] Predislocation s yndrome of metatarsophalang eal joint of right foot M25.8 71 and Abscess of heel, left L0 2.[address] [facility] Jun, [place] [address] [facility] [address] [facility] Jun, Hammer toe of right foot M20.41 [place], ; Bunion of right foot M20.11 ; [place] [address] Predislocation s yndrome of metatarsophalang eal joint of right foot M25.8 71 and Abscess of heel, left L0 2.612 [facility] [address] [facility] Jun, [place] [address] [facility] [address] May, Tinea pedis of l eft foot B35.3 ; [facility] [address] Hammer toe of right foot M20.41 ; Bunion of righ t foot M20.11 ; Predislocation s yndrome of metatarsophalang eal joint of right foot M25.8 71 and Abscess of heel, left L0 2.612 [facility] [address] [facility] Apr, [place] [address] [facility] [address] [facility] Apr, [place] [address] [facility] [address] [facility] Apr, [place] [address] [facility] [address] [facility] Apr, Tinea pedis o f left foot B35.3 ; [place], [place] [place] [address] ; Bunion of righ t foot M20.11 and Predislocati on syndrome of metatarsophalang eal joint of right foot M25.8 71 [facility] [facility] March, Hammer toe of right foot M20.41 [place], ; [place]union [place] M20[place]11 [place] [address] and Predislocati on syndrome of metatarsophalang eal joint of right foot M25.8 71 [facility] [address] [employer] Feb, [facility] [place] [address] [facility] [address] [facility] Nov, Hammer toe of right foot M20.41 [place], ; Bunion of right foot M20.11 ; [place] [address] Onychomycosis B3 5.1 ; Tinea pedis of both fe et B35.3 and Predislocation s yndrome of metatarsophalang eal joint of right foot M25.8 71 [facility] [address] [employer] [place] Aug, Onychomycosis B3 5.1 [place] [address] [facility] [address] [facility] 30 Aug, 2019 Hammer toe of right foot M20.[address], ; Bunion of right foot M20.11 ; [place] [address] Onychomycosis B3 5.1 ; Tinea pedis of both fe et B35.3 and Predislocation s yndrome of metatarsophalang eal joint of right foot M25.8 71 IMMUNIZATIONS No Known Immunizations SOCIAL HISTORY Qualifiers Date Current Smoker REASON FOR REFERRAL FUNCTIONAL STATUS PLAN OF CARE Activity Details Follow Up pre-op visit Reason: Future Test LIVER FUNCTION TESTS 9311923 2 Future Test CBC WITH AUTO DIFF 20191108 Future Test Path:Other 20190926 Future Test CBC WITH AUTO DIFF 20190926 Future Test COMPMET 20190926 Future Test X Foot R 3V 20190926 VITAL SIGNS Height 64 in 2020-10-01 Weight 151 lbs 2020-10-01 BMI 25.92 kg/m2 2020-10-01 Temperature 97.0 degrees Fahrenheit 2020-10-01 Heart Rate 83 /min 2020-10-01 Respiratory Rate 16 /min 2020-10-01 Oximetry 95 % 2020-10-01 Blood pressure systolic 115 mm Hg 2020-10-01 Blood pressure diastolic 79 mm Hg 2020-10-01 MEDICATIONS Medication Instructions Dosage Frequency Start End Duration Statu s Date Date Doxycycline Orally every 12 1 tablet 12h 10 day(s) N ot-Taki Hyclate 100 MG hrs ng Mupirocin 2 % Externally 1 application 12h A ctive twice a day Clotrimazole-B Externally 1 application 12h 29 Apr, Not-Taki etamethasone Twice a day 2019 ng 1-0.05 % PROCEDURES No Known procedures RESULTS Name Result Date Reference Range CULTURE ANAEROBIC 2020-06-02 RESULT 1 [id number] CULTURE WOUND 2020-06-02 LIVER FUNCTION TESTS 2019-11-08 ALBUMIN 4.2 ALKALINE PHOSPHATASE 55 ALT 19 AST 21 DIRECT BILIRUBIN 0.1 TOTAL BILIRUBIN 0.5 TOTAL PROTEIN 6.4 zzTOTAL BILI TOTAL PROTEIN* ALBUMIN* TOTAL BILI* DIRECT BILI* ALT* AST* ALKALINE PHOS* CBC WITH AUTO DIFF 2019-11-08 CORRECT ANC WBC 6.6 HGB 12.6 HCT 36.6 PLATELET 238 RBC 4.16 MCV 88.0 MCH 30.3 MCHC 34.4 RDW 12.3 MPV 10.6 ANC #IG 0.01 #LYMPH 2.0 #EOS 0.0 #MONO 0.7 #BASO 0.1 NEUTROPHIL % 56.7 IG% 0.2 LYMPHOCYTE % 30.8 MONOCYTE % 11.2 EOSINOPHIL % 0.0 BASOPHIL % 1.1 ATYP LYMPH PLT MORPH PROMYELO MACRO MICRO NRBC HYPO BLAST ANISO BAND BASO EOS LYMPH META MONO MYELO POIK RBC MORPH SEG MANUAL DIFF #IMM GRAN %IMM GRAN Path:Other 2019-09-26 COMPMET 2019-09-26 ALBUMIN 4.1 ALKPHOS 63 ALT 14 AST 19 BUN 22 CALCIUM 9.7 CHLORIDE 104 CARBON DIOXIDE 28 CREATININE STANDARDIZED 0.55 DIRECT BILIRUBIN ESTIMATED GLOMERULAR FILTRATION 124 GLUCOSE 89 POTASSIUM 4.2 SODIUM 140 TOTAL BILIRUBIN 0.1 TOTAL PROTEIN 6.8 EGFR INTERPRETATION BUN/CREAT CORRECT AGE zzGLUCOSE zzCREATININE zzSODIUM zzPOTASSIUM zzCHLORIDE zzCO2 zzCALCIUM zzTOTAL PROTEIN zzALBUMIN zzTOTAL BILI zzALT zzAST zzALKALINE PHOS BUN*/CREAT* CBC WITH AUTO DIFF 2019-09-26 CORRECT ANC WBC 8.7 HGB 13.3 HCT 38.3 PLATELET 220 RBC 4.42 MCV 86.7 MCH 30.1 MCHC 34.7 RDW 12.1 MPV 10.3 ANC #IG 0.02 #LYMPH 2.2 #EOS 0.0 #MONO 0.9 #BASO 0.1 NEUTROPHIL % 63.8 IG% 0.2 LYMPHOCYTE % 25.3 MONOCYTE % 9.9 EOSINOPHIL % 0.0 BASOPHIL % 0.8 ATYP LYMPH PLT MORPH PROMYELO MACRO MICRO NRBC HYPO BLAST ANISO BAND BASO EOS LYMPH META MONO MYELO POIK RBC MORPH SEG MANUAL DIFF #IMM GRAN %IMM GRAN X Foot R 3V 2019-09-26 Image Accessible REASON FOR VISIT sotero modified right foot , PRE OP, Cancel Surgery, Surgery Scheduling, f/u abscess left heel, pt states that she is here for her right foot pain , pt states that she would like to discuss going forward with foot surgery , Heel is no better, F/U ORTHOTICS, referral done, pt states that she is her forf/u , pt states that her right foot is doing really good , pt states that her left foot is cracked and sore again , pt states that she is still following all the instructions that where given previously, antibactrail soap, good socks and such , abcess and pain , pt to come in earlier, blister issues , pt states that the spots on the back of her heel that where lanced the last time she was in, are starting to become really painful and red , pt states that she also has a bump on the bottom of her foot that is very painful and is making it hard for her walk , should she be seen or wait till next apt,L HEEL CELLULITUS, orthotics, Last seen by ALR for foot care and orthotic casting -HL , 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 , pt states that the Clotrimazole cream is not helping at all yet , pt states that when she wears her socks and shoes at work all day she comes home with new blisters on her left foot , pt states that her right foot is also really sore from inflammatiion , rash notgetting better, return call, footcare f/u, pt requested sooner appt 03/31/2020 MARINE , needs orthotic appt, footcare f/u orthodic casting, last seen by ALR 04/16/20- right forefoot pain, cont budin toe splint- still wearing and is helping , NOT COVERED BY INSURANCE- self pay, pt states she is here for orthotic casting, aware of self pay, footcare f/u, last seen by ALR on 12/26/19 for Hammertoe R foot and O nychomycosis. pt advised to wear budin toe splint and continue terbinafine-KG, pt states that her hammer toe is not bothering her , pt states that the bursitis is really bothering her , pt states that she is still using a budin splint , 3 month f/u, cx appt, f/u bunion, kathryn R review xrays, f/u tmt onychomycois, referral done, pt states that she is here for a f/u , Repeat labs in 6 weeks, foot pain, chronic, Referral Done, New POD patient, pt states that she has a toenail fungus that she can't get rid of. , pt states that over the past 6 months she has had pain underneath the 2nd and third toe of the right foot, pt states that she will randoma;ly get blissters in the arches -HL , pt statse that she has tried all kinds of OTC and home remedy's and has had no luck , pt states that she has a leg length discrepency , pt states she use to have lifts, but they have worn out and she never got newones made Insurance Providers [facility] Member Patient Patient Patient Patient Patient Subscriber Subscriber Subscriber Group Insurance Plan Plan Plan Plan ID Relationship Address Phone Name Date of ID Name Date of No Type Insurance Insurance Insurance Coverage to Subscriber Address Phone Name Dates UNITED [address] self [place]O 1970 [id number] [id number] [facility] [id number] SELF [address] SELF PAY self ARMANDO 1970 [place] [id number] SELF PAY self ARM[place]O [id number] [place] [id number] S[address] SELF PAY self ARMANDO [id number] [place] [id number] INS UNITED [address] self ARMANDO 1970 [id number] [facility] [id number] [facility] [id number] SELF [address] SELF PAY self ARMANDO [id number] [place] [id number] INSURANCE MEDICAL (GENERAL) HISTORY Type Description Date Medical History Postmenopausal atrophic vaginitis Medical History Grief Surgical History tubeligation
--- NOTE | 2021-08-17 06:15 | DI.CT_ITS ---
Exam(s) CT ABDOMEN PELVIS W EXAM: CT ABDOMEN PELVIS W CLINICAL HISTORY: pain and swelling at previous hernia repair site. TECHNIQUE: Imaging Protocol: Axial computed tomography images with coronal and sagittal reformatted images were created and reviewed CONTRAST MATERIAL: Intravenous: Omnipaque 100cc Oral: None COMPARISON: CT CT ABDOMEN PELVIS W from 04/21/2021 FINDINGS: VISUALIZED LUNG BASES: No nodules nor pleural effusions evident. ABDOMEN: There is no ascites. LIVER: There are no focal hepatic lesions evident . GALLBLADDER/BILIARY: No obvious gallbladder pathology. CBD is not dilated. PANCREAS: No evidence of pancreatic mass nor dilatation of the pancreatic duct. SPLEEN: Spleen is not enlarged. No obvious intrasplenic lesions. Splenic and portal veins are paten t. ADRENALS: There are no significant adrenal masses. KIDNEYS:Tiny cortical cysts noted bilaterally measuring 2 millimeters. No solid renal masses. No ca lculi nor hydronephrosis.. ABDOMINAL AORTA: Abdominal aorta is not enlarged. LYMPH NODES:There is no retroperitoneal nor paraaortic adenopathy. ABDOMINAL WALL: There is a small fat containing umbilical hernia, unchanged. There is evidence of ri ght inguinal hernia repair and there is fat and fluid evident within the right inguinal canal, increa sed from previous. GI: There is no evidence of bowel obstruction, free air, nor abscess. Descending colon and sigmoid appears somewhat thickened circumferentially. PELVIS: GI: No evidence of appendicitis.No evidence of sigmoid diverticulitis. LYMPH NODES: There is no intrapelvic nor inguinal adenopathy. REPRODUCTIVE: Uterus exhibits age-appropriate size. The right ovary is slightly prominent, measuring 3.6 x 3 x 3.3 cm. Left ovary appears unremarkable. No free fluid in the pelvis. URINARY BLADDER: No calculi nor obvious masses evident OSSEOUS: No significant osseous lesions. IMPRESSION: 1. Compared to the prior CT scan of March 2021 there is again noted evidence of right-sided inguinal he rnia repair. There is still fat in the inguinal canal and increased fluid within the right inguinal canal also evident. 2. Descending colon through the rectosigmoid exhibits some circumferential wall thickening, either re lated to lack of distension versus segmental colitis. No diverticulitis. No appendicitis. 3. Slightly prominent right ovary. Normal size left ovary. No free fluid in the pelvis. Study 1st read by [facility] RADIATION DOSE DELIVERED: 898.25mGy.cm Total DLP DATA REPOSITORY: All CT scans at this facility are submitted to the National Radiology Data Registry (NRDR) Dose Index Registry (DIR) with the [employer] (ACR). RADIATION OPTIMIZATION: All CT scans at this facility use at least one of these dose optimization te chniques: automated exposure control; mA and/or kV adjustment per patient size (includes targeted exa ms where dose is matched to clinical indication); or iterative reconstruction.
[2021-08-17] MEDS: Ketorolac 15 MG/ML VIAL IVP (06:30)
[2021-08-17] MEDS: Lactated Ringers 1,000 ML 1000 ML IV (06:40)
[2021-08-17] MEDS: Omnipaque 350 MG/ML 100 ML BTL IJ (07:00)
[2021-08-17] MEDS: Normal Saline Flush 10 ML SYR IVP (07:01)
--- NOTE | 2021-08-17 07:33 | DI.VRAD_ITS ---
PROCEDURE INFORMATION: Exam: CT Abdomen And Pelvis With Contrast Exam date and time: 08/17/2021 6:22 AM Age: 51 years old Clinical indication: Abdominal pain; Localized; Right; Prior surgery; Surgery date: 6+ months; Surgery type: Hernia repair x 2; Patient HX: Pain and swelling at previous hernia repair site, ruq and rlq TECHNIQUE: Imaging protocol: Computed tomography of the abdomen and pelvis with contrast. Radiation optimization: All CT scans at this facility use at least one of these dose optimization techniques: automated exposure control; mA and/or kV adjustment per patient size (includes targeted exams where dose is matched to clinical indication); or iterative reconstruction. Contrast material: OMNIPAQUE 350; Contrast volume: 100 ml; Contrast route: INTRAVENOUS (IV); COMPARISON: CT ABDOMEN PELVIS W 04/21/2021 12:59 PM FINDINGS: Lungs: Minimal dependent basilar atelectasis. Liver: No enlargement or mass. Gallbladder and bile ducts: Unremarkable without gallstones, wall thickening or other findings of acute cholecystitis. Biliary tract nondilated. Pancreas: No enlargement. No mass. No ductal dilatation. Spleen: Normal size. No mass. Adrenal glands: No mass. No enlargement. No hemorrhage. Kidneys and ureters: No mass. No hydronephrosis. No hydroureter or ureterolithiasis. Stomach and bowel: Moderate fecal load proximally within the colon. Descending colon through the rectosigmoid decompressed with wall thickening, lack of distention versus segmental colitis. No significant diverticulosis or diverticulitis. No other areas of suspected colitis. Stomach decompressed and unremarkable. Small bowel unremarkable. No mechanical obstruction or pneumatosis. Appendix: Appendix with small amount of internal fluid and enhancing wall. No appendicolith. No significant periappendiceal inflammation. Probably normal for this patient rather than early appendicitis. Intraperitoneal space: No significant free fluid. No free air. No significant free fluid demonstrated. No free intraperitoneal air demonstrated. Vasculature: Aorta normal caliber without aneurysm. Lymph nodes: No significant lymphadenopathy demonstrated. Urinary bladder: Unremarkable as visualized. No wall thickening, mass or calculus. Reproductive: Prominent right ovary with probable follicular changes. Similar to previous. Minor follicular changes left ovary. Bones/joints: Mild degenerative changes noted throughout the spine. No fracture or subluxation. Soft tissues: Status post right-sided inguinal and femoral hernia repairs with small amount of adipose tissue, stable, and fluid, increased, extending to the inguinal canal. Minimal left inguinal canal adipose tissue. Uncomplicated fat containing umbilical hernia. IMPRESSION: 1. Status post right-sided inguinal and femoral hernia repairs with small amount of adipose tissue, stable, and fluid, increased from previous, extending to the inguinal canal. 2. Moderate fecal load proximally within the colon. Descending colon through the rectosigmoid decompressed with wall thickening, lack of distention versus segmental colitis. No significant diverticulosis or diverticulitis. 3. Appendix with small amount of internal fluid and enhancing wall. No appendicolith. No significant periappendiceal inflammation. Probably normal for this patient rather than early appendicitis. 4. Additional nonemergent findings as described above. Dictated and Authenticated by: Eric Obregon MD. Ordering:HAIDER Dejesus MD
[2021-08-17 07:53] VITALS: BP 134/84; PULSE 82; RESP 16; TEMP 36.4; O2SAT 100
== END 2021-08-17 07:55 | disposition home or self-care (01) ==
PROVIDERS: Emergency Provider Emergency Medicine
DX: R10.31 Right lower quadrant pain (principal); Z48.815 Encounter for surgical aftercare following surgery on the digestive system
CPT/HCPCS: 96361; 96374; 99285; 74177; 99284; J1885; J3490

== ENCOUNTER 2021-09-29 02:26 | Outpatient (CLI) | payer OTHER, SELFPAY ==
[2021-09-29 11:05] LABS: HCT 40.5 % (36.0-46.0); HGB 13.7 g/dL (11.2-15.7); MCH 30.2 pg (27.0-33.0); MCHC 33.8 % (32.0-36.0); MCV 89.2 fL (80-95); MPV 10.6 fL (8.0-11.0); Platelet Count 230 10^3/uL (130-400); RBC 4.54 10^6/uL (3.93-5.22); RDW 12.2 % (11.7-14.6); RDW-SD 40.2 fL; WBC 8.34 10^3/uL (4.4-10.8)
[2021-09-29 12:25] LABS: ALT 32 U/L (14-59); AST 23 U/L (15-37); Albumin 4.3 g/dL (3.4-5.0); Alkaline Phosphatase 93 U/L (46-116); Anion Gap 6.5 mmol/L (3-11); BUN 20 mg/dL (7-18); Bilirubin, Total 0.3 mg/dL (0.2-1.0); CO2 30.5 mmol/L (21.0-32.0); CREATININE 0.7 mg/dL (0.55-1.02); Calcium 9.8 mg/dL (8.5-10.1); Calculated LDL 161 mg/dL (<100); Chloride 103 mmol/L (98-107); Cholesterol 226 mg/dL (<200); Glucose 79 mg/dL (74-106); HDL Cholesterol 53 mg/dL (40-60); Sodium 140 mmol/L (136-145); Total Protein 6.9 g/dL (6.4-8.2); Triglyceride 60 mg/dL (<150)
== END 2021-09-29 02:27 | disposition home or self-care (01) ==
LOC: LBO 02:26
PROVIDERS: PCP Nurse Practitioner; Visit Provider Nurse Practitioner
DX: R00.2 Palpitations (principal); R42 Dizziness and giddiness; Z13.220 Encounter for screening for lipoid disorders
CPT/HCPCS: 36415; 80053; 80061; 85027; 84443

== ENCOUNTER 2021-10-28 00:42 | Outpatient (CLI) | payer OTHER, SELFPAY ==
--- NOTE | 2021-10-28 14:17 | DI.US_ITS ---
APPROVED REPORT EXAM: Comprehensive 2D, Doppler, and color-flow Echocardiogram Patient Location: Out-Patient Hematology Nurse Educator: Lise Mohr RDCS (AE) Indications: Palpitations, Lightheadedness Other Information Study Quality: Adequate Conclusion Normal left ventricular wall thickness and chamber size. Estimated ejection fraction is 60%. There are no segmental wall motion abnormalities Normal right ventricular size and systolic function Both atria are normal in size There is no structural or hemodynamically significant valvular disease Wall motion Left Ventricle The left ventricle is normal size. The left ventricular systolic function is normal. The left ventric ular ejection fraction is within the normal range. There is normal left ventricular wall thickness. T here is normal LV segmental wall motion. There is no ventricular septal defect visualized. LVEF is 60 %. Right Ventricle Right ventricle is grossly normal in size. Right ventricular systolic function is grossly normal. The RVSP is 22.7 mmHg. Atria The left atrium size is normal. The right atrium size is normal. The interatrial septum is intact wit h no evidence for an atrial septal defect. Aortic Valve The aortic valve is normal in structure. Aortic valve is trileaflet. There is no aortic valvular sten osis. Trace aortic regurgitation. Mitral Valve The mitral valve is normal in structure. No evidence of mitral valve stenosis. Trace mitral regurgita tion. Tricuspid Valve The tricuspid valve is normal in structure. There is no tricuspid valve stenosis. Trace tricuspid reg urgitation. Pulmonic Valve The pulmonary valve is normal in structure. There is no pulmonic valvular stenosis. There is no pulmo lukasz valvular regurgitation. Great Vessels The aortic root is normal in size. Ascending aorta is not well visualized. Aortic arch is normal in c aliber. IVC is normal in size and collapses >50% with inspiration. Pericardium There is no pericardial effusion. 2D Dimensions IVSD d PLAX 0.74 cm F: 0.6-1.0 LV Vol A2C d MOD 71.6 mL LVPW d PLAX 0.77 cm F: 0.6 - 1.0 LV Vol A4C d MOD 65.0 mL LVID d PLAX 4.55 cm F: 3.8 - 5.2 LA vol/ BSA A2C s A-L 15.3 mL/m2 LVDs 3.05 cm F: 2.2 - 3.5 LA vol/ BSA A4C s A-L 14.7 mL/m2 Ao Root d 2.89 cm F: 2.7 - 3.3 LA Vol/ BSA Biplane s A-L 15.3 mL/m2 RA Area A4C 7.00 cm2 LA Area A4C s MOD 11.38 cm2 RA Vol/ BSA A4C s A-L 8.0 mL/m2 LA Area A2C s MOD 11.41 cm2 LV EF Teichholz 60.2 % LV EF A4C MOD 60.6 % LVEF (Mullen's) 60.22 % F: 54 - 74 LV EF A2C MOD 59.4 % LV Volume 54.81 mL F: 46 - 106 LV EF Biplane MOD 60.2 % LV Volume Index 31.86 mL/m2 F: 29 - 61 SV 41.75 mL LV Vol Biplane MOD 69.3 mL SV Index 24.26 mL/m2 FS 32.00 % M-Mode TAPSE 2.30 cm (M/F) >1.7 LV Diastology MV E' medial 0.111 (>0.07 m/s) E/A Ratio 0.8 LV E/e MED 5.85 (<14) MV E Vmax 0.65 (0.4-1.3 m/s) MV E' lateral 0.124 (>0.1 m/s) MV A Vmax 0.80 (0.4-1.3 m/s) LV E/e LAT 5.25 (<14) MV E/A Ratio 0.79 MV E/E' medial 5.88 MV E/E' lateral 5.26 Aortic Valve LVOT Area 2.84 cm2 AoV Area Vmax 2.20 cm2 LVOT Vmax 0.85 m/s AoV Area/ BSA (Vmax) 1.28 cm2/m2 LVOT Mean Zafar. 0.53 m/s FELICIANO Mean Zafar. 2.02 cm2 LVOT Peak Grad 2.9 mmHg FELICIANO Mean Zafar. Index 1.18 cm2/m2 LVOT Mean Grad 1.4 mmHg AR DT 1915 msec LVOT VTI 0.158 m AR PHT 555 msec LVOT Diam s 1.90 cm AoV Vmax 1.10 m/s Velocity Ratio 0.77 AoV Mean Zafar. 0.75 m/s AoV Peak Grad 4.9 mmHg LVOT SV 44.87 mL AoV Mean Grad 2.6 mmHg AoV VTI 0.200 m AoV Area VTI 2.25 cm2 AoV Area/ BSA (VTI) 1.31 cm/m2 Mitral Valve MV DT 188 (160-240 msec) MV PHT 54 msec MV Area PHT 4.04 cm2 MV VTI 0.209 m MV VTI Annulus 0.213 m MV Area VTI 2.19 (4.0-6.0 cm2) Pulmonary Valve PV Vmax 0.86 (0.5-1.5 m/s) RVOT Peak Gr. 1.77 mmHg PV Peak Grad 3.0 mmHg RVOT Mean Gr. 0.85 mmHg PV Mean Grad 1.6 mmHg RVOT VTI 0.138 m PV VTI 0.160 m RVOT Vmax 0.67 m/s Tricuspid Valve TR Peak Grad 19.7 mmHg TR Vmax 2.22 m/s RA Pressure 3.00 mmHg RVSP (TR) 22.7 mmHg
== END 2021-10-28 01:02 ==
PROVIDERS: PCP Nurse Practitioner; Visit Provider Nurse Practitioner
DX: R00.2 Palpitations (principal); R42 Dizziness and giddiness
CPT/HCPCS: 93306

== ENCOUNTER 2021-11-13 02:10 | Outpatient (CLI) | payer OTHER, SELFPAY ==
--- NOTE | 2021-11-13 07:45 | DI.MAMMO_ITS ---
Exam(s) MAMMO SCREENING EXAM: MAMMO SCREENING CLINICAL HISTORY: screening,Z12.39 TECHNIQUE: Bilateral full field digital CC and MLO mammographic images were obtained with 3D tomosyn thesis and utilizing computer aided detection (CAD). COMPARISON: Available for comparison. FINDINGS: Masses/Architectural Distortion: None seen. Microcalcifications: No suspicious pleomorphic-type are seen. Skin Thickening/Nipple Retraction: None. IMPRESSION: 1. No significant interval change with no specific features of malignancy noted. 2. Unless there is more urgent need, screening mammography is recommended, as per [employer] guidelines. BI-RADS Category 1 - Negative Breast Density - Category C - Heterogeneously dense Breast density category C or D implies that the patient has dense breast tissue. Dense breast tissue is very common and is not abnormal but dense breast tissue can make it harder to find cancer on a ma mmogram. Also, dense breast tissue may increase their breast cancer risk. This information about the result of the mammogram report was provided to the patient to raise their awareness. Use this report when you speak with the patient about their risks for breast cancer, which includes their family hist ory. At that time, you may recommend for more screening tests (Ultrasound or MRI) as they might be us eful based on their risk. A negative radiographic report should not delay biopsy if a dominant or clinically suspicious mass is present. Up to ten percent of cancers are not identified on mammography. A negative report may reinforce clinical impression. Adenosis and dense breasts may obscure an underlying neoplasm. False positive reports average 6 to 10%. Patient will receive a letter notifying them of these results.
== END 2021-11-13 02:30 ==
PROVIDERS: PCP Nurse Practitioner; Visit Provider Nurse Practitioner Family
DX: Z12.31 Encounter for screening mammogram for malignant neoplasm of breast (principal); R92.8 Other abnormal and inconclusive findings on diagnostic imaging of breast
CPT/HCPCS: 77063; 77067

== ENCOUNTER 2022-11-25 02:13 | Outpatient (CLI) | payer OTHER, SELFPAY ==
[2022-11-25 13:00] LABS: ALT 18 U/L (14-59); AST 21 U/L (15-37); Albumin 4.1 g/dL (3.4-5.0); Alkaline Phosphatase 80 U/L (46-116); Anion Gap 5.5 mmol/L (3-11); BUN 18 mg/dL (7-18); Bilirubin, Total 0.3 mg/dL (0.2-1.0); CO2 30.5 mmol/L (21.0-32.0); CREATININE 0.7 mg/dL (0.55-1.02); Calcium 9.4 mg/dL (8.5-10.1); Calculated LDL 150 mg/dL (<100); Chloride 105 mmol/L (98-107); Cholesterol 225 mg/dL (<200); Estimated GFR 103.35 (mL/min/1.73m2); Glucose 87 mg/dL (74-106); HDL Cholesterol 51 mg/dL (40-60); Potassium 4.2 mmol/L (3.5-5.1); Sodium 141 mmol/L (136-145); Total Protein 7.2 g/dL (6.4-8.2); Triglyceride 121 mg/dL (<150)
== END 2022-11-25 02:14 | disposition home or self-care (01) ==
LOC: LBO 02:15
PROVIDERS: PCP Nurse Practitioner; Referring Provider Nurse Practitioner; Visit Provider Nurse Practitioner
DX: K21.9 Gastro-esophageal reflux disease without esophagitis (principal); K44.9 Diaphragmatic hernia without obstruction or gangrene; Z13.220 Encounter for screening for lipoid disorders
CPT/HCPCS: 36415; 80053; 80061

== ENCOUNTER 2022-12-27 02:19 | Outpatient (CLI) | payer OTHER, SELFPAY ==
--- NOTE | 2022-12-27 07:00 | DI.US_ITS ---
Exam(s) US PELVIS TRANSVAGINAL EXAM: US PELVIS TRANSVAGINAL CLINICAL HISTORY: 4.7 cm complex cyst vs solid mass right,N83.8. TECHNIQUE: Transabdominal and transvaginal pelvic ultrasound was performed using standard protocol. COMPARISON: CT CT ABDOMEN PELVIS W from 08/17/2021 FINDINGS: KIDNEYS: Limited renal evaluation is unremarkable. UTERUS: Position: Anteverted. Size: 6.1 long by 3.3 AP by 4.6 transverse cm Endometrium: 0.1 cm. Normal for patient's menstrual status. Myometrium: Unremarkable. Cervix: Unremarkable. OVARIES: Right: At least 6 cm x 5 cm. Cm Cyst or mass: There is a 4.7 x 3.3 x 4.1 cm solid hypoechoic mass which appears to be arising from th e right ovary. Left: At least 2.5 cm x 2.5 cm. Cm Cyst or mass: There is a 2.3 x 2.2 x 1.7 cm solid hypoechoic mass arising from the left ovary. DOPPLER: Color: Symmetric and uniform flow to both ovaries. CUL-DE-SAC: Free fluid: None. Other: None. IMPRESSION: 1. Limited evaluation of the kidneys is unremarkable. 2. Normal-appearing uterus with endometrial stripe within normal limits. 3. Bilateral solid hypoechoic ovarian masses. Neoplasm should be considered. A pelvic MRI without a nd with contrast should be considered for further evaluation. DATA REPOSITORY:
--- NOTE | 2022-12-27 08:25 | DI.MAMMO_ITS ---
Exam(s) MAMMO SCREENING EXAM: MAMMO SCREENING CLINICAL HISTORY: screening,Z12.39 TECHNIQUE: Bilateral full field digital CC and MLO mammographic images were obtained with 3D tomosyn thesis and utilizing computer aided detection (CAD). COMPARISON: Available for comparison. FINDINGS: Masses/Architectural Distortion: None seen. Microcalcifications: No suspicious pleomorphic-type are seen. Skin Thickening/Nipple Retraction: None. IMPRESSION: 1. No significant interval change with no specific features of malignancy noted. 2. Unless there is more urgent need, screening mammography is recommended, as per [employer] guidelines. BI-RADS Category 1 - Negative Breast Density - Category B - Scattered areas of fibroglandular density Breast density category C or D implies that the patient has dense breast tissue. Dense breast tissue is very common and is not abnormal but dense breast tissue can make it harder to find cancer on a ma mmogram. Also, dense breast tissue may increase their breast cancer risk. This information about the result of the mammogram report was provided to the patient to raise their awareness. Use this report when you speak with the patient about their risks for breast cancer, which includes their family hist ory. At that time, you may recommend for more screening tests (Ultrasound or MRI) as they might be us eful based on their risk. A negative radiographic report should not delay biopsy if a dominant or clinically suspicious mass is present. Up to ten percent of cancers are not identified on mammography. A negative report may reinforce clinical impression. Adenosis and dense breasts may obscure an underlying neoplasm. False positive reports average 6 to 10%. Patient will receive a letter notifying them of these results.
--- NOTE | 2022-12-27 08:32 | DI.CTLCSR_ITS ---
Exam(s) CT CHEST LUNG CANCER SCREEN EXAM: CT CHEST LUNG CANCER SCREEN CLINICAL HISTORY: Screening for lung cancer,SMOKER,F17.210 TECHNIQUE: Imaging Protocol: Axial computed tomography images with coronal and sagittal reformatted images were created and reviewed COMPARISON: No exams were available for comparison FINDINGS: Tracheobronchial tree: Patent where visualized. Pulmonary parenchyma: No consolidation or dominant measurable mass. There is biapical scarring presen t. Lung Nodules: There is a 3 mm nodule in the left lower lobe. Mediastinum and Jenni: No dominant adenopathy or fluid collection. The esophagus is unremarkable. Thyroid gland: Unremarkable. Lymph nodes: Unremarkable. Pleura: No effusion or pneumothorax. Heart: The heart is not dilated. No coronary artery calcifications are seen. No pericardial effusion . Aorta: Thoracic aorta non-dilated. Upper abdomen: Unremarkable. Soft Tissues: Unremarkable. Bones: Within normal limits. IMPRESSION: 3 mm left lower lobe pulmonary nodule. Lung RADS Cat 2 - Benign Appearance / Behavior: Nodules with a very low likelihood of becoming a clin ically active cancer due to size or lack of growth Lung-RADS 1.0 CATEGORIES: Category 0 - Prior chest CT exam(s) being located for comparison. Category 1 - Annual screening in 12 months. No nodules or definitely benign nodules. Category 2 - Annual screening in 12 months. Benign appearance. Nodules with low likelihood of becomin g active cancer. Category 3 - 6-month follow-up. Probably benign. Short-term follow-up suggested. Nodules with low lik elihood of becoming active cancer. Category 4A - 3-month follow-up and CT/PET if >8 mm in size. Suspicious finding. Findings which requi re additional testing. Category 4B - Findings which require additional testing and tissue sampling. Suspicious finding. Category 4X - Category 3 or 4 nodules with additional features or imaging findings that increases the suspicion of malignancy. Modifier S- Potentially clinically significant finding. (Non lung cancer) RADIATION DOSE DELIVERED: 73.72mGy.cm Total DLP 73.72mGy.cmTotal DLP DATA REPOSITORY: All CT scans at this facility are submitted to the National Radiology Data Registry (NRDR) Dose Index Registry (DIR) with the [employer] (A[employer]). RADIATION OPTIMIZATION: All CT scans at this facility use at least one of these dose optimization te chniques: automated exposure control; mA and/or kV adjustment per patient size (includes targeted exa ms where dose is matched to clinical indication); or iterative reconstruction.
== END 2022-12-27 02:39 ==
LOC: DI 02:20
PROVIDERS: PCP Nurse Practitioner; Visit Provider Nurse Practitioner
DX: Z12.31 Encounter for screening mammogram for malignant neoplasm of breast (principal); F17.210 Nicotine dependence, cigarettes, uncomplicated; Z12.2 Encounter for screening for malignant neoplasm of respiratory organs; N83.8 Other noninflammatory disorders of ovary, fallopian tube and broad ligament; R91.1 Solitary pulmonary nodule; N83.291 Other ovarian cyst, right side; N83.292 Other ovarian cyst, left side
CPT/HCPCS: 71271; 77063; 77067; 76830; 76856

== ENCOUNTER 2023-01-04 04:28 | Outpatient (CLI) | payer OTHER, SELFPAY ==
[2023-01-04 23:04] LABS: CEA 0.9 ng/mL (See Note)
[2023-01-05 09:30] LABS: CA 125 16 U/mL (<30)
[2023-01-05 09:42] LABS: CA 19-9 <2 U/mL (<35)
== END 2023-01-04 04:29 | disposition home or self-care (01) ==
LOC: LBO 04:28
PROVIDERS: PCP Nurse Practitioner; Visit Provider Nurse Practitioner
DX: N83.8 Other noninflammatory disorders of ovary, fallopian tube and broad ligament; R10.2 Pelvic and perineal pain
CPT/HCPCS: 36415; 86304; 82378; 86301

== ENCOUNTER → 2023-12-30 01:02 | Outpatient (CLI) | payer OTHER, SELFPAY ==
--- NOTE | 2023-12-30 07:30 | DI.CTLCSR_ITS ---
Exam(s) CT CHEST LUNG CANCER SCREEN EXAM: CT CHEST LUNG CANCER SCREEN CLINICAL HISTORY: Screening for lung cancer,CURRENT SMOKER, F17.210 TECHNIQUE: Imaging Protocol: Axial computed tomography images with coronal and sagittal reformatted images were created and reviewed COMPARISON: CT CT ABDOMEN AND PELVIS WO CONTRAST from 11/18/[address] CHEST LUNG CANCER SCREEN from 12/27/2022 FINDINGS: Tracheobronchial tree: Patent where visualized. Pulmonary parenchyma: No consolidation or dominant measurable mass. No architectural distortion. Lung Nodules: There is a stable 3 mm left lower lobe pulmonary nodule. (Series 3, image 232). No ne w pulmonary nodules are present. Mediastinum and Jenni: No dominant adenopathy or fluid collection. The esophagus is unremarkable. Thyroid gland: Unremarkable. Lymph nodes: Unremarkable. Pleura: No effusion or pneumothorax. Heart: The heart is not dilated. No coronary artery calcifications are seen. No pericardial effusion . Aorta: Thoracic aorta non-dilated. Upper abdomen: Unremarkable. Soft Tissues: Unremarkable. Bones: Within normal limits. IMPRESSION: Stable left lower lobe pulmonary nodule. No new pulmonary nodules. Lung RADS Cat 2 - Benign Appearance / Behavior: Nodules with a very low likelihood of becoming a clin ically active cancer due to size or lack of growth Lung-RADS 1.0 CATEGORIES: Category 0 - Prior chest CT exam(s) being located for comparison. Category 1 - Annual screening in 12 months. No nodules or definitely benign nodules. Category 2 - Annual screening in 12 months. Benign appearance. Nodules with low likelihood of becomin g active cancer. Category 3 - 6-month follow-up. Probably benign. Short-term follow-up suggested. Nodules with low lik elihood of becoming active cancer. Category 4A - 3-month follow-up and CT/PET if >8 mm in size. Suspicious finding. Findings which requi re additional testing. Category 4B - Findings which require additional testing and tissue sampling. Suspicious finding. Category 4X - Category 3 or 4 nodules with additional features or imaging findings that increases the suspicion of malignancy. Modifier S- Potentially clinically significant finding. (Non lung cancer) RADIATION DOSE DELIVERED: 69.79mGy.cm Total DLP 69.79mGy.cmTotal DLP DATA REPOSITORY: All CT scans at this facility are submitted to the National Radiology Data Registry (NRDR) Dose Index Registry (DIR) with the [employer] (ACR). RADIATION OPTIMIZATION: All CT scans at this facility use at least one of these dose optimization te chniques: automated exposure control; mA and/or kV adjustment per patient size (includes targeted exa ms where dose is matched to clinical indication); or iterative reconstruction.
--- NOTE | 2023-12-30 10:18 | DI.MAMMO_ITS ---
Exam(s) MAMMO SCREENING EXAM: MAMMO SCREENING CLINICAL HISTORY: screening,Z12.39 TECHNIQUE: Bilateral full field digital CC and MLO mammographic images were obtained with 3D tomosyn thesis and utilizing computer aided detection (CAD). COMPARISON: Available for comparison. FINDINGS: Masses/Architectural Distortion: None seen. Microcalcifications: No suspicious pleomorphic-type are seen. Skin Thickening/Nipple Retraction: None. IMPRESSION: 1. No significant interval change with no specific features of malignancy noted. 2. Unless there is more urgent need, screening mammography is recommended, as per [employer] [place] [employer] guidelines. BI-RADS Category 1 - Negative Breast Density - Category B - Scattered areas of fibroglandular density Breast density category C or D implies that the patient has dense breast tissue. Dense breast tissue is very common and is not abnormal but dense breast tissue can make it harder to find cancer on a ma mmogram. Also, dense breast tissue may increase their breast cancer risk. This information about the result of the mammogram report was provided to the patient to raise their awareness. Use this report when you speak with the patient about their risks for breast cancer, which includes their family hist ory. At that time, you may recommend for more screening tests (Ultrasound or MRI) as they might be us eful based on their risk. A negative radiographic report should not delay biopsy if a dominant or clinically suspicious mass is present. Up to ten percent of cancers are not identified on mammography. A negative report may reinforce clinical impression. Adenosis and dense breasts may obscure an underlying neoplasm. False positive reports average 6 to 10%. Patient will receive a letter notifying them of these results.
== END ==
PROVIDERS: PCP Nurse Practitioner; Visit Provider Nurse Practitioner
DX: Z12.31 Encounter for screening mammogram for malignant neoplasm of breast (principal); F17.210 Nicotine dependence, cigarettes, uncomplicated; Z12.2 Encounter for screening for malignant neoplasm of respiratory organs; R92.323 Mammographic fibroglandular density, bilateral breasts; R91.8 Other nonspecific abnormal finding of lung field
CPT/HCPCS: 71271; 77063; 77067

== ENCOUNTER 2023-12-30 03:22 | Outpatient (CLI) | payer OTHER, SELFPAY ==
[2023-12-30 10:40] LABS: ALT 23 U/L (14-59); AST 19 U/L (15-37); Albumin 3.9 g/dL (3.4-5.0); Alkaline Phosphatase 60 U/L (46-116); Anion Gap 7.5 mmol/L (3-11); BUN 15 mg/dL (7-18); Bilirubin, Total 0.3 mg/dL (0.2-1.0); CO2 28.5 mmol/L (21.0-32.0); CREATININE 0.7 mg/dL (0.55-1.02); Calcium 9.7 mg/dL (8.5-10.1); Calculated LDL 137 mg/dL (<100); Chloride 106 mmol/L (98-107); Cholesterol 205 mg/dL (<200); Estimated GFR 102.71 (mL/min/1.73m2); Glucose 85 mg/dL (74-106); HDL Cholesterol 50 mg/dL (40-60); Potassium 3.9 mmol/L (3.5-5.1); Sodium 142 mmol/L (136-145); Total Protein 6.9 g/dL (6.4-8.2); Triglyceride 94 mg/dL (<150)
== END 2023-12-30 03:23 | disposition home or self-care (01) ==
LOC: LBO 03:23
PROVIDERS: PCP Nurse Practitioner; Visit Provider Nurse Practitioner
DX: E78.5 Hyperlipidemia, unspecified (principal)
CPT/HCPCS: 36415; 80053; 80061

== ENCOUNTER 2025-01-17 00:53 | Outpatient (CLI) | payer OTHER, SELFPAY ==
--- NOTE | 2025-01-17 07:00 | DI.CT_ITS ---
Exam(s) CT CHEST WO EXAM: CT CHEST WO CLINICAL HISTORY: follow lung nodules,r91.1. TECHNIQUE: Imaging protocol: Axial computed tomography images were obtained and coronal and sagittal reformatted images were created and reviewed. Lung Computer Aided Detection (CAD) was utilized. COMPARISON: CT CT CHEST LUNG CANCER SCREEN from 12/30/2023 FINDINGS: Tracheobronchial tree: Patent where visualized. No bronchiectasis is present. Pulmonary parenchyma: There is a new small reticular nodular infiltrate in the lateral aspect of the lingula. No new pulmonary nodules are present. No architectural distortion. There is no change in t he small 3 mm nodule in the periphery of the left lower lobe (series 2, image 45). Mediastinum and Jenni: No dominant adenopathy or fluid collection. The esophagus is unremarkable. Thyroid gland: Unremarkable. Pleura: No effusion or pneumothorax. Heart: The heart is not dilated. Mild single-vessel coronary artery calcification is present. No per icardial effusion. Aorta: Thoracic aorta non-dilated. Upper abdomen: Unremarkable. Lymph nodes: Within normal limits. Soft tissues: Unremarkable. Bones:Within normal limits for the patient's age. There is prominent kyphosis of the thoracic spine. IMPRESSION: 1. Stable pulmonary nodule. No new pulmonary nodules. 2. New small reticular nodular infiltrate in the lingula. This may represent a mild pneumonitis. RADIATION DOSE DELIVERED: 139.69mGy.cm Total DLP 139.69mGy.cm Total DLP DATA REPOSITORY: All CT scans at this facility are submitted to the National Radiology Data Registry (NRDR) Dose Index Registry (DIR) with the [employer] (A[employer]). RADIATION OPTIMIZATION: All CT scans at this facility use at least one of these dose optimization te chniques: automated exposure control; mA and/or kV adjustment per patient size (includes targeted exa ms where dose is matched to clinical indication); or iterative reconstruction.
--- NOTE | 2025-01-17 12:53 | DI.MAMMO_ITS ---
Exam(s) MAMMO SCREENING EXAM: MAMMO SCREENING CLINICAL HISTORY: screening,z12.39 TECHNIQUE: Bilateral full field digital CC and MLO mammographic images were obtained with 3D tomosyn thesis and utilizing computer aided detection (CAD). COMPARISON: Available for comparison. FINDINGS: Masses/Architectural Distortion: There is a stable nodule in the medial right breast. No new nodules are seen. No areas of architectural distortion are present. Microcalcifications: No suspicious pleomorphic-type are seen. Skin Thickening/Nipple Retraction: None. IMPRESSION: 1. No significant interval change with no specific features of malignancy noted. 2. Unless there is more urgent need, screening mammography is recommended, as per [employer] guidelines. BI-RADS Category 2 - Benign Findings Breast Density - Category C - Heterogeneously dense Breast density category C or D implies that the patient has dense breast tissue. Dense breast tissue is very common and is not abnormal but dense breast tissue can make it harder to find cancer on a ma mmogram. Also, dense breast tissue may increase their breast cancer risk. This information about the result of the mammogram report was provided to the patient to raise their awareness. Use this report when you speak with the patient about their risks for breast cancer, which includes their family hist ory. At that time, you may recommend for more screening tests (Ultrasound or MRI) as they might be us eful based on their risk. A negative radiographic report should not delay biopsy if a dominant or clinically suspicious mass is present. Up to ten percent of cancers are not identified on mammography. A negative report may reinforce clinical impression. Adenosis and dense breasts may obscure an underlying neoplasm. False positive reports average 6 to 10%. Patient will receive a letter notifying them of these results.
== END 2025-01-17 01:13 ==
LOC: DI 00:53
PROVIDERS: PCP Nurse Practitioner; Visit Provider Nurse Practitioner
DX: R91.1 Solitary pulmonary nodule (principal); F17.200 Nicotine dependence, unspecified, uncomplicated; Z12.31 Encounter for screening mammogram for malignant neoplasm of breast; R92.333 Mammographic heterogeneous density, bilateral breasts; D24.1 Benign neoplasm of right breast
CPT/HCPCS: 71250; 77063; 77067

== ENCOUNTER 2025-11-18 10:39 | Outpatient (REF) | payer OTHER, SELFPAY ==
--- NOTE | 2025-11-18 10:30 | PAPFT_PTH ---
PATIENT: Maribeth John I LOC: [facility] U#:[id number] AGE/SX: 55/F ROOM: RE11/18/[address]: Jillian Guerrero DO : 1970 BED: DIS: 11/18/2025 SPEC #: [id number] RECD: 11/18/25 12:59 STATUS: SUMAN REQ #: [id number] EDDIE: 11/18/25 10:[address]: Jillian Guerrero DEPT: [facility] Cytology RECD BY: Marva Newsome ENTERED: 11/18/25 13:00 SP TYPE: PAPFT OTHR DR: Fay Teran APRN Tissues: 1 - CX/ENDOCX FOR PAP SMEARS Procedures: PAP THIN PREP/[facility] Screening HPV DNA PROBE Comments: [id number] (HPV 16 & 18/45)
== END 2025-11-18 10:40 | disposition home or self-care (01) ==
LOC: LBN 10:39
PROVIDERS: PCP Nurse Practitioner; Visit Provider Obstetrics & Gynecology
DX: Z12.4 Encounter for screening for malignant neoplasm of cervix (principal)
CPT/HCPCS: 88142; 87624